=== PATIENT | male | born 1940 | race Caucasian/White ===

== ENCOUNTER → 2017-10-25 | Outpatient (CLI) | payer MEDICARE ==
--- NOTE | 2017-10-25 15:08 | NM ---
EXAMINATION TYPE: NM bone scan whole body DATE OF EXAM: 10/25/2017 COMPARISON: Plain film right knee 10/01/2017 HISTORY: Osteoarthritis, pain in right knee and lower leg Delayed whole-body scanning was performed following the injection of 25.4 mCi Tc 99m MDP. Images acq uired 3.5 hours post injection. FINDINGS: abnormal increased radio pharmaceutical uptake present in the right greater than left knee especially along the tibial plateau, also within the feet greater on the left than on the right. Abnormal uptak e present within the lumbar spine, there is associated spinal curvature, findings likely degenerative . Uptake also noted at the eighth costovertebral angle on the left likely degenerative. Abnormal upta ke in the shoulders is also noted. IMPRESSION: There is likely degenerative disc disease involving the lumbar spine with associated spinal curvature . Plain film findings within the right knee with some discordance, findings may represent posttraumat ic microtrabecular fractures, bone scan or follow-up x-ray or CT could be performed for better evalua tion. Degenerative changes may be present in the feet greater on the left than on the right as well a s in the costovertebral angle on the left at the eighth level. Difficult to exclude fracture.
== END | disposition home or self-care (01) ==
LOC: RADNMMAIN 10:53
PROVIDERS: ATTEND Family Medicine
DX: R93.7 Abnormal findings on diagnostic imaging of other parts of musculoskeletal system (principal); M19.90 Unspecified osteoarthritis, unspecified site
CPT/HCPCS: 78306; A9503

== ENCOUNTER → 2019-02-23 | Outpatient (CLI) | payer MEDICARE ==
[2019-02-23 11:02] LABS: African American GFR (CKD) >90 (>60 ml/min/1.73 sqM); Blood Urea Nitrogen 21 mg/dL (9-20)
--- NOTE | 2019-02-23 13:40 | CT ---
EXAMINATION TYPE: CT ChestAbdPelvis w con DATE OF EXAM: 02/23/2019 COMPARISON: None HISTORY: Eievated PSA CT DLP: 628.7 mGycm CONTRAST: CT scan of the chest, abdomen and pelvis is performed with Oral Contrast and with IV Contrast, patien t injected with 100 ml mL of Isovue 300. CT Chest: LUNGS: Nodular density left lower lobe with mild associated pleural thickening measuring 1.1 cm. Janes tional nodule right lower lobe measuring 1 cm. Small subpleural 3 mm nodule lateral right lower lobe image 35. Posterior right upper lobe pleural-based density measuring 1.3 x 0.9 cm. Focal atelectasis or infiltrate like area small in size left upper lobe medially measuring 1.7 x 0.8 cm. Mild scattered subpleural fibrotic change. No evidence of pleural effusion. Emphysematous changes noted in the uppe r lobes. MEDIASTINUM: Thoracic aorta is of normal caliber. The heart is not enlarged. No evidence for medi astinal mass or adenopathy. HILAR STRUCTURES: No evidence for mass. No hilar adenopathy is appreciated. OTHER: No significant abnormality. CONTRAST CT ABDOMEN AND PELVIS FINDINGS: LIVER/GB: Hepatomegaly with underlying fatty hepatic infiltration. No calcified gallstones. No spa ce occupying hepatic lesion. Biliary tree is of normal caliber. PANCREAS: No inflammation. No distinct mass. SPLEEN: The spleen is enlarged with craniocaudal measurement of 17.2 cm. No lesion seen. ADRENALS: No nodule. No thickening. KIDNEYS/BLADDER: No hydronephrosis. No nephrolithiasis. No disctinct renal mass. BOWEL: Normal appendix. Normal bowel caliber. No inflammation. GENITAL ORGANS: No gross abnormality. LYMPH NODES: No greater than 1cm abdominal or pelvic lymph nodes are appreciated. AORTA: Mild aneurysmal prominence of the infrarenal abdominal aorta measuring 3.1 cm with mural throm bus seen. OSSEOUS STRUCTURES: Degenerative changes lumbar spine without definite blastic lesion identified. OTHER: No significant additional abnormality is seen. IMPRESSION: 1. Nonspecific pulmonary nodularity. Consider PET/CT. 2. Hepatosplenomegaly. 3. Mild abdominal aortic aneurysm. 4. Degenerative changes lumbar spine.
--- NOTE | 2019-02-23 14:59 | NM ---
EXAMINATION TYPE: NM bone scan whole body DATE OF EXAM: 02/23/2019 COMPARISON: Same day CT. Prior bone scan October 25, 2017 HISTORY: Elevated PSA Delayed whole-body scanning was performed following the injection of 23.8 mCi Tc 99m MDP. Images acq uired 3 hours post injection. Images of the body and anterior and posterior projection along with the thorax abdomen and pelvis in several oblique projections in the skull in several projections. FINDINGS: There is no suspicious increased radiotracer uptake to suggest osseous metastatic disease or other si gnificant abnormality. IMPRESSION: As above.
== END | disposition home or self-care (01) ==
LOC: RADNMMAIN 09:51
PROVIDERS: ATTEND Internal Medicine Hematology & Oncology
DX: Z03.89 Encounter for observation for other suspected diseases and conditions ruled out (principal); R97.20 Elevated prostate specific antigen [PSA]; R91.8 Other nonspecific abnormal finding of lung field; R16.2 Hepatomegaly with splenomegaly, not elsewhere classified
CPT/HCPCS: 82565; 84520; 71260; 74177; 36415; 78306; A9503; Q9967

== ENCOUNTER → 2019-03-03 | Outpatient (CLI) | payer MEDICARE ==
--- NOTE | 2019-03-03 13:32 | XR ---
EXAMINATION TYPE: XR ankle complete LT DATE OF EXAM: 03/03/2019 COMPARISON: None HISTORY: Ankle pain TECHNIQUE: Three-view left ankle FINDINGS: There is prominent diffuse soft tissue swelling over the ankle. The ankle mortise appears i ntact. No displaced fractures are evident. IMPRESSION: 1. Diffuse soft tissue swelling over the ankle. 2. No acute osseous abnormality. Follow-up exams can be 7-10 days from acute trauma for continued reg n.
== END | disposition home or self-care (01) ==
LOC: RADXRMAIN 12:58
PROVIDERS: ATTEND Family Medicine
DX: M25.472 Effusion, left ankle (principal)

== ENCOUNTER → 2019-03-25 | Outpatient (CLI) | payer MEDICARE ==
--- NOTE | 2019-03-28 08:04 | PE ---
Nuclear medicine PET/CT HISTORY: Malignant neoplasm lung, initial Patient received 10.9 mCi F-18 FDG intravenously in delayed scanning performed from skull base to the mid thighs. Localization and attenuation correction CT scan was performed. Correlation chest abdomen pelvis CT 02/23/2019 Neck and chest: Uptake along the musculature in the left neck skull likely to be physiologic. There i s no cervical, supraclavicular, or axillary adenopathy. Some areas of probable scarring are present a t the lung bases and subpleural locations. There is no associated hypermetabolic uptake. Additional s ubpleural nodularity right upper lobe shows no associated uptake. The previously identified area of s tellate underlying atelectasis. There is aorticopulmonary window node present with some mild uptake. The node is borderline enlarged. Some mild uptake present in the retrocaval pretracheal nodes. There is borderline enlargement of one of the nodes. There are dense coronary artery calcifications present. No pleural or pericardial effusion. ABDOMEN: There is no evident liver mass. Liver shows a nodular contour, correlate for possible underl cata cirrhosis. Spleen is enlarged. Abdominal aorta. Is aneurysmal measuring 3.4 cm. There is no adre nal mass. No suspicious hypermetabolic uptake present within the abdomen. Stomach shows thickened wal l which is indeterminate. Extensive uptake noted along the colon may be physiologic, there is extensi ve diverticular change of the sigmoid colon, difficult to exclude a mucosal lesion. Prostate is enlar ged. Injection granuloma present in the gluteal regions. Osseous structures are within normal limits. IMPRESSION: Improvement in the basilar density described in the left lower lobe, there is no suspicio us hypermetabolic uptake within the lungs. Mild uptake noted within the mildly enlarged nodes within the aorticopulmonary window and retrocaval pretracheal node. Coronary artery disease. Correlate for c irrhosis. Splenomegaly. Prostatic enlargement.
== END | disposition home or self-care (01) ==
LOC: RADPETMAIN 12:48
PROVIDERS: ATTEND Radiology Radiation Oncology
DX: I25.10 Atherosclerotic heart disease of native coronary artery without angina pectoris (principal); R16.1 Splenomegaly, not elsewhere classified; N40.0 Benign prostatic hyperplasia without lower urinary tract symptoms; C34.90 Malignant neoplasm of unspecified part of unspecified bronchus or lung
CPT/HCPCS: 78815; A9552

== ENCOUNTER 2019-04-20 07:44 | Day surgery (SDC) | payer MEDICARE ==
[~2019-04-20 07:44] MED LIST: HYDROmorphone 0.5 MG/0.5 ML SYRINGE IVP PRN; LACTATED RINGERS 1,000 ML IV SCH; ONDANSETRON 4 MG/2 ML VIAL IVP PRN
[2019-04-20 08:03] VITALS: TEMP 97.8
[2019-04-20] MEDS ORDERED: LIDOCAINE 1% 20 ML VIAL (10MG/ML) FOR IV START INTRADERMA ONE (08:03)
[2019-04-20] MEDS ORDERED: LACTATED RINGERS 1,000 ML IV ONE (08:03)
[2019-04-20 08:12] LABS: Glucose,Whole Blood 132 mg/dL (75-99)
[2019-04-20] MEDS ORDERED: LIDOCAINE 1% INJ 10MG/ML (20 ML MDV) ONE (08:16)
[2019-04-20] MEDS ORDERED: PROPOFOL 10 MG/ML 20 ML VIAL IV ONE (08:16)
--- NOTE | 2019-04-20 09:21 | P.PCN ---
Date of Procedure: 04/20/19 Description of Procedure: Brief history: Patient is a pleasant scheduled for an elective upper endoscopy as well as colonoscopy as a part of evaluation of iron deficiency anemia. Patient denies any signs or symptoms of GI bleeding. He denies any abdominal pain, change in bowel habits or blood per rectum. No family history of colon cancer. No prior endoscopies reported. Procedure performed: Esophagogastroduodenoscopy with biopsy and banding of esophageal varices Colonoscopy Estimated blood loss: Minimal. Preoperative diagnosis: Iron deficiency anemia, no prior endoscopic evaluations reported Anesthesia: MAC Procedure: After informed consent was obtained from the patient was brought into the endoscopy unit and IV sedation was administered by anesthesia under continuous monitoring. Initially upper endoscopy was done. The Olympus GF 190 video endoscope was inserted into the mouth and esophagus intubated without any difficulty and was gradually advanced into the stomach and duodenum and carefully examined. The bulb and second part of the duodenum appeared normal, with biopsies taken. The scope was then withdrawn into the stomach adequately insufflated with air and upon careful examination the antrum and body, cardia and fundus appeared normal, except for some mild scattered erythema in the antrum and body suggestive of mild gastritis with biopsies taken. The scope was then withdrawn into the esophagus. The GE junction was located at 40 cm to the incisors. 3 columns of large varices noted in the mid and distal esophagus with variceal band ligation performed in a circumferential manner starting in the distal esophagus and moving proximally with 7 bands successfully placed. The patient tolerated the procedure well At this time the patient continued to remain sedation. Initial digital rectal examination was normal. Olympus CF 190 video colonoscope was then inserted into the rectum and gradually advanced to the cecum without any difficulty. Careful examination was performed as the scope was gradually being withdrawn. The prep was excellent. The cecum, ascending colon, transverse colon, descending colon, sigmoid colon and rectum appeared normal. 5 polyps measuring from 4 mm in size to 8 mm in size removed from the transverse colon with hot snare polypectomy. 4 polyps measuring from 3 mm in size to 8 mm in size removed from the descending colon with hot snare polypectomy. 3 polyps removed from the rectum measuring from 2 mm in size to 11 mm in size with hot snare polypectomy. Retroflexion was performed in the rectum and no lesions were noted, internal hemorrhoids noted as well as rectal varices. Patient tolerated the procedure well. Impression: 1. Banding of esophageal varices. Mild gastritis antrum and body biopsied. Duodenal biopsies. 2. Colonic polyps removed with hot snare polypectomy (please see body of report for location and size). Rectal varices. Moderate internal hemorrhoids. Recommendations: Findings of this examination were discussed with the patient as well as his . Okay for liquid diet today, can advance tomorrow as tolerated. Okay to resume medications. Patient will need repeat upper endoscopy in 2 weeks for esophageal variceal band ligation. Avoid pathology from polypectomies. Would recommend repeat colonoscopy in one year.
[2019-04-20 10:01] VITALS: RESP 16
[2019-04-20 10:02] LABS: Glucose,Whole Blood 150 mg/dL (75-99)
[2019-04-20 10:06] VITALS: BP 157/76; PULSE 98
== END 2019-04-20 10:42 | disposition home or self-care (01) ==
LOC: ORWHC2ENDO 07:44
PROVIDERS: ATTEND Internal Medicine
DX: I85.01 Esophageal varices with bleeding (principal); K29.50 Unspecified chronic gastritis without bleeding; D12.3 Benign neoplasm of transverse colon; D12.4 Benign neoplasm of descending colon; D50.9 Iron deficiency anemia, unspecified; K62.1 Rectal polyp; K64.8 Other hemorrhoids; Z88.0 Allergy status to penicillin; J44.9 Chronic obstructive pulmonary disease, unspecified; F17.200 Nicotine dependence, unspecified, uncomplicated; Z99.81 Dependence on supplemental oxygen; Z79.82 Long term (current) use of aspirin; Z79.891 Long term (current) use of opiate analgesic; Z79.899 Other long term (current) drug therapy; Z86.010 Personal history of colon polyps; E11.9 Type 2 diabetes mellitus without complications; Z85.46 Personal history of malignant neoplasm of prostate
CPT/HCPCS: 88305; 45385; 43239; 43244; J2001; J2704

== ENCOUNTER → 2020-01-30 | Outpatient (CLI) | payer MEDICARE ==
--- NOTE | 2020-01-30 14:28 | NM ---
EXAMINATION TYPE: NM bone scan whole body DATE OF EXAM: 01/30/2020 COMPARISON: Whole body bone scan February 23, 2019. PET CT March 25, 2019. Same day whole body CT. HISTORY: Prostate cancer. Delayed whole-body scanning was performed following the injection of 23.5 mCi Tc 99m MDP. Images acq uired 3 hours post injection. FINDINGS: There is no increased radiotracer uptake at roughly T5 vertebra corresponding to the diffus e sclerotic vertebra on same day CT with moderate height loss and similar increased radiotracer uptak e involving the adjacent T8 and T9 vertebra corresponding to the sclerotic vertebra with mild to mode rate height loss on same-day CT. Additional areas of radiotracer uptake corresponding to the anterolateral lower ribs bilaterally at s ite of healing subacute fractures on same-day CT. All findings new from prior bone scan and PET/CT. IMPRESSION: Subacute or healing fractures anterolateral bilateral lower ribs and thoracic spine compr ession fractures at 3 levels. Findings could be related to subacute trauma, correlate clinically, und erlying new metastatic disease is not excluded and should be correlated clinically and with PSA value s.
--- NOTE | 2020-02-01 23:06 | CT ---
EXAMINATION TYPE: CT ChestAbdPelvis wo con DATE OF EXAM: 01/30/2020 COMPARISON: PET/CT 03/25/2019 HISTORY: Prostate CA CT DLP: 376.6 mGycm. Automated Exposure Control for Dose Reduction was Utilized. TECHNIQUE: CT scan of the thorax, abdomen and pelvis is performed without IV contrast. FINDINGS: LUNGS: Centrilobular and paraseptal emphysema. Right upper lobe apical scarring and interstitial coar sening redemonstrated. Bibasilar atelectasis. Redemonstrated 3 mm nodule of the right lower lobe (4:3 6). There is no pleural effusion or pneumothorax seen. The tracheobronchial tree is patent. MEDIASTINUM/SOFT TISSUES: No axillary, hilar, or mediastinal lymphadenopathy greater than 1 cm. Cardi ac size is normal. Calcified coronary artery disease. No pericardial effusion. No thoracic aortic ane urysm. LIVER: Cirrhotic liver. BILIARY SYSTEM: No intrahepatic or extrahepatic biliary ductal dilatation. PANCREAS: Atrophic. No peripancreatic inflammation. SPLEEN: Enlarged measuring up to 15.7 cm in craniocaudal dimension. ADRENALS: No nodules. KIDNEYS: No hydronephrosis or urolithiasis. BOWEL: There is gastric fold hypertrophy of the stomach fundus and body. No evidence of bowel obstru ction. Colonic diverticulosis. PERITONEUM: No pneumoperitoneum. There is small volume ascites and mesenteric haziness. LYMPH NODES: No lymphadenopathy. PELVIS: Unremarkable urinary bladder and prostate on noncontrast examination. VASCULATURE: 3.2 cm infrarenal abdominal aortic aneurysm. Marked calcified atherosclerotic disease. Gastric varices are seen. Portal vein measures up to 2.0 cm. MUSCULOSKELETAL: Osteoporosis. Mild T9 compression deformity. Moderate T8 compression deformity with mild retropulsion. There is severe compression deformity of T4 with mild retropulsion. IMPRESSION: 1. Severe T4 compression deformity, moderate T8 compression deformity, and mild T9 compression deform ities appear new since 03/25/2019 and 02/23/2019 comparisons. These compression deformities correspond to increased uptake on same day nuclear medicine bone scan, likely subacute. Etiology may be related to diffuse osteoporosis. Pathological fracture is considered less likely. 2. No intra-abdominal or intrathoracic evidence of metastatic prostate cancer. 3. Cirrhotic liver and sequela of portal hypertension including ascites and gastric varices. 4. Thickening of the gastric folds may be due to portal hypertensive gastropathy. 5. 3.2 cm infrarenal abdominal aortic aneurysm. 6. Emphysema.
== END | disposition home or self-care (01) ==
LOC: RADNMMAIN 09:42
PROVIDERS: ATTEND Internal Medicine Hematology & Oncology
DX: Z03.89 Encounter for observation for other suspected diseases and conditions ruled out (principal); C61 Malignant neoplasm of prostate; I71.4 Abdominal aortic aneurysm, without rupture; J43.9 Emphysema, unspecified; K74.60 Unspecified cirrhosis of liver; K76.6 Portal hypertension; I86.4 Gastric varices; R18.8 Other ascites; Z88.0 Allergy status to penicillin
CPT/HCPCS: 71250; 74176; 78306; A9503

== ENCOUNTER → 2020-03-01 | Outpatient (CLI) | payer MEDICARE ==
--- NOTE | 2020-03-01 15:19 | XR ---
EXAMINATION TYPE: XR thoracic spine complete DATE OF EXAM: 03/01/2020 COMPARISON: None HISTORY: Pain, recent fall TECHNIQUE: Three-view thoracic spine FINDINGS: There are 12 thoracic type vertebral bodies. Pedicles are intact. There is compression defo rmity of T4. Some deformity of T6 and T8 are evident. Inferior endplate of T9 has some height loss. There is exaggeration of thoracic kyphosis. Disc heights appear preserved. IMPRESSION: 1. Compression deformities of T4, T6 and T8 with some inferior. This appears to been interval findin g from 03/25/2019 but present from 01/30/2020 endplate change at T9
== END | disposition home or self-care (01) ==
LOC: RADXRMAIN 14:04
PROVIDERS: ATTEND Family Medicine
DX: S22.009A Unspecified fracture of unspecified thoracic vertebra, initial encounter for closed fracture (principal)
CPT/HCPCS: 72072

== ENCOUNTER 2020-04-12 15:45 | Inpatient (IN) | payer MEDICARE ==
[2020-04-12] MEDS ORDERED: methylPREDNISolone SOD SUCCI 125 MG/2 ML VIAL IV STA (15:58)
[2020-04-12] MEDS ORDERED: IPRATROPIUM 0.5 MG/2.5 ML NEBU INHALATION STA (15:58)
[2020-04-12] MEDS ORDERED: ALBUTEROL NEBULIZED 2.5 MG/3 ML INHALATION STA (15:58)
--- NOTE | 2020-04-12 16:27 | ED ---
General Adult HPI - General Chief complaint: Shortness of Breath Stated complaint: leg swelling Time Seen by Provider: 04/12/20 15:51 Source: patient, RN notes reviewed, old records reviewed Mode of arrival: ambulatory Limitations: no limitations - History of Present Illness Initial comments: 80-year-old male history of COPD and emphysema on 2 L of home O2 presenting with worsening dyspnea. Patient states this has happened over the course of several days, his who is at bedside states that this began at on Wednesday of this week which was 3 days prior to arrival. No reported fever. He does report cough which has worsened as well. He's had increased lower extremity edema and increased abdominal distention. - Related Data Home Medications Medication Instructions Recorded Confirmed Aspirin EC [Ecotrin Low Dose] 81 mg PO DAILY 10/01/17 04/12/20 Esomeprazole Magnesium [NexIUM] 40 mg PO QAM 10/01/17 04/12/20 Mometasone/Formoterol [Dulera 200 2 puff INHALATION RT-BID 10/01/17 04/12/20 Mcg/5 Mcg Inhaler] glipiZIDE [Glucotrol] 10 mg PO BID 10/01/17 04/12/20 metFORMIN HCL [Glucophage] 500 mg PO BID 10/01/17 04/12/20 Vit C/E/Zn/Coppr/Lutein/Zeaxan 1 cap PO DAILY 04/18/19 04/12/20 [Preservision Areds 2 Softgel] oxyCODONE-APAP 10-325MG [Percocet 1 tab PO TID 04/18/19 04/12/20 10-325 mg] Albuterol Nebulized [Ventolin 2.5 mg INHALATION RT-QID PRN 04/12/20 04/12/20 Nebulized] Apalutamide [Erleada] 240 mg PO DAILY 04/12/20 04/12/20 Calcium 1200mg + Vit D3 5000u 1 tab PO DAILY 04/12/20 04/12/20 Cholecalciferol [Vitamin D3 (25 5,000 unit PO DAILY 04/12/20 04/12/20 Mcg = 1000 Iu)] Furosemide [Lasix] 40 mg PO DAILY 04/12/20 04/12/20 Potassium Chloride ER [K-Dur 20] 20 meq PO DAILY 10/30/20 10/30/20 Tiotropium [place] [Spiriva 1 spray INHALATION RT-DAILY@1800 04/12/20 04/12/20 Respimat] predniSONE 10 mg PO DIRECTED 04/12/20 04/12/20 traZODone HCL 100 mg PO HS 04/12/20 04/12/20 Allergies Allergy/AdvReac Type Severity Reaction Status Date / Time Penicillins Allergy Rash/Hives Verified 04/12/20 15:49 Review of Systems ROS Statement: Those systems with pertinent positive or pertinent negative responses have been documented in the HPI. ROS Other: All systems not noted in ROS Statement are negative. Past Medical History Past Medical History: Cancer, COPD, Diabetes Mellitus, GERD/Reflux, Osteoarth ritis (OA) Additional Past Medical History / Comment(s): CHRONIC PAIN. IRON LOW, GETTING INFUSION THERAPY FOR 3 TIMES. PROSTATE CANCER. History of Any Multi-Drug Resistant Organisms: None Reported Past Surgical History: Appendectomy, Hernia Repair Past Anesthesia/Blood Transfusion Reactions: No Reported Reaction Past Psychological History: No Psychological Hx Reported Smoking Status: Never smoker Past Alcohol Use History: Occasional Past Drug Use History: None Reported General Exam Limitations: no limitations General appearance: alert, in distress Head exam: Present: atraumatic, normocephalic Eye exam: Present: normal appearance. Absent: PERRL, EOMI ENT exam: Present: mucous membranes dry Neck exam: Present: normal inspection. Absent: tenderness, meningismus Respiratory exam: Present: respiratory distress, wheezes, accessory muscle use, decreased breath sounds Cardiovascular Exam: Present: regular rate, normal rhythm, systolic murmur GI/Abdominal exam: Present: soft, distended. Absent: tenderness, guarding Extremities exam: Present: pedal edema (3+) Neurological exam: Present: alert Psychiatric exam: Present: anxious Skin exam: Present: cyanosis, pallor Course Vital Signs 04/12/20 04/12/20 04/12/20 15:47 16:20 16:26 Temperature 99 F Pulse Rate 40 L 99 98 Respiratory 32 H Rate Blood Pressure 117/71 110/62 O2 Sat by Pulse 81 L 95 Oximetry 04/12/20 04/12/20 16:28 17:07 Temperature Pulse Rate 101 H 101 H Respiratory Rate Blood Pressure 122/69 O2 Sat by Pulse 98 Oximetry - Reevaluation(s) Reevaluation #1: 04/12/20 18:06 I did have a discussion with the patient's significant other who is bedside as well as his son who is traveling from out of town to be with his father. We discussed CODE STATUS and the patient's goals of care. All parties including the patient have agreed that he should not be resuscitated. He will receive medical management for his issues as well as comfort measures at this time. EKG Findings - EKG Comments: EKG Findings:: EKG: Normal sinus rhythm, low voltage no ST segment elevation, tremor artifactrate of 100 [place] interval 126, QRS duration 66, QTC 456 Medical Decision Making - Medical Decision Making 80-year-old male presenting in extremis, patient is cachectic with abdominal distention, he has respiratory distress with wheezing throughout. Patient patient has abdominal distention, lower extremity pitting edema. Given the acute nature of this I did order workup for dyspnea including echo. Echo is negative for large effusion or tamponade. There is some aortic stenosis. Patienthas a stable CBC. He has multiple tread abnormalities including hyponatremia, hypomagnesemia, hypocalcemia, hypoalbuminemiahe has an elevated INR and hyperbilirubinemia. I suspect this is new onset liver failure. I discussed the patient's presentation and goals of care with his significant other who is at bedside and his son who is on his way from out of town. All parties agree that the patient would not want resuscitation. His CODE STATUS is entered into the computer. All parties are agreeable with medical management. Patient has been admitted to Dr. Terrazas who is aware of the patient, GI, cardiology, and pulmonology placed on consult. - Lab Data Result diagrams: 04/12/20 16:14 04/12/20 16:14 Lab Results 04/12/20 04/12/20 04/12/20 Range/Units 16:14 16:14 16:14 WBC 8.2 (3.8-10.6) k/uL RBC 4.25 L (4.30-5.90) m/uL Hgb 13.4 (13.0-17.5) gm/dL Hct 43.3 (39.0-53.0) % MCV 101.9 H (80.0-100.0) fL MCH 31.5 (25.0-35.0) pg MCHC 31.0 (31.0-37.0) g/dL RDW 17.2 H (11.5-15.5) % Plt Count 147 L (150-450) k/uL Neutrophils % (Manual) 80 % Band Neuts % (Manual) 4 % Lymphocytes % (Manual) 8 % Monocytes % (Manual) 8 % Neutrophils # (Manual) 6.80 (1.3-7.7) k/uL Lymphocytes # (Manual) 0.66 L (1.0-4.8) k/uL Monocytes # (Manual) 0.66 (0-1.0) k/uL Nucleated RBCs 0 (0-0) /100 WBC Manual Slide Review Performed Poikilocytosis (manual Present Anisocytosis Slight Macrocytosis Moderate PT 12.1 H (9.0-12.0) sec INR 1.2 H (<1.2) APTT 28.4 (22.0-30.0) sec Sodium 127 L (137-145) mmol/L Potassium 4.2 (3.5-5.1) mmol/L Chloride 91 L (98-107) mmol/L Carbon Dioxide 26 (22-30) mmol/L Anion Gap 10 mmol/L BUN 53 H (9-20) mg/dL Creatinine 0.93 (0.66-1.25) mg/dL Est GFR (CKD-EPI)AfAm 89 (>60 ml/min/1.73 sqM) Est GFR (CKD-EPI)NonAf 77 (>60 ml/min/1.73 sqM) Glucose 186 H (74-99) mg/dL Plasma Lactic Acid Romulo (0.7-2.0) mmol/L Calcium 7.4 L (8.4-10.2) mg/dL Magnesium 1.1 L (1.6-2.3) mg/dL Total Bilirubin 2.8 H (0.2-1.3) mg/dL AST 42 (17-59) U/L ALT 20 (4-49) U/L Alkaline Phosphatase 310 H (38-126) U/L Troponin I (0.000-0.034) ng/mL Total Protein 6.0 L (6.3-8.2) g/dL Albumin 2.5 L (3.5-5.0) g/dL 04/12/2004/12/ Range/Units 16:14 16:14 WBC (3.8-10.6) k/uL RBC (4.30-5.90) m/uL Hgb (13.0-17.5) gm/dL Hct (39.0-53.0) % MCV (80.0-100.0) fL MCH (25.0-35.0) pg MCHC (31.0-37.0) g/dL RDW (11.5-15.5) % Plt Count (150-450) k/uL Neutrophils % (Manual) % Band Neuts % (Manual) % Lymphocytes % (Manual) % Monocytes % (Manual) % Neutrophils # (Manual) (1.3-7.7) k/uL Lymphocytes # (Manual) (1.0-4.8) k/uL Monocytes # (Manual) (0-1.0) k/uL Nucleated RBCs (0-0) /100 WBC Manual Slide Review Poikilocytosis (manual Anisocytosis Macrocytosis PT (9.0-12.0) sec INR (<1.2) APTT (22.0-30.0) sec Sodium (137-145) mmol/L Potassium (3.5-5.1) mmol/L Chloride (98-107) mmol/L Carbon Dioxide (22-30) mmol/L Anion Gap mmol/L BUN (9-20) mg/dL Creatinine (0.66-1.25) mg/dL Est GFR (CKD-EPI)AfAm (>60 ml/min/1.73 sqM) Est GFR (CKD-EPI)NonAf (>60 ml/min/1.73 sqM) Glucose (74-99) mg/dL Plasma Lactic Acid Romulo 2.7 H* (0.7-2.0) mmol/L Calcium (8.4-10.2) mg/dL Magnesium (1.6-2.3) mg/dL Total Bilirubin (0.2-1.3) mg/dL AST (17-59) U/L ALT (4-49) U/L Alkaline Phosphatase (38-126) U/L Troponin I <0.012 (0.000-0.034) ng/mL Total Protein (6.3-8.2) g/dL Albumin (3.5-5.0) g/dL Critical Care Time Critical Care Time: Yes Total Critical Care Time: 35 Disposition Clinical Impression: Acute exacerbation of chronic obstructive pulmonary disease, Liver failure, Abdominal ascites, Aortic stenosis Disposition: ADMITTED IP TO THIS HOSP Condition: Serious Is patient prescribed a controlled substance at d/c from ED?: No Referrals: Anselmo Tello DO [Primary Care Provider] - 1-2 days Decision to Admit Reason: Admit from EC Decision Date: 04/12/20 Decision Time: 18:10
[2020-04-12 16:32] LABS: INR 1.2 (<1.2); Partial Thromboplastin Time 28.4 sec (22.0-30.0); Prothrombin Time 12.1 sec (9.0-12.0)
[2020-04-12 16:34] LABS: Albumin 2.5 g/dL (3.5-5.0); Calcium 7.4 mg/dL (8.4-10.2); Magnesium 1.1 mg/dL (1.6-2.3); Potassium 4.2 mmol/L (3.5-5.1); Total Bilirubin 2.8 mg/dL (0.2-1.3)
[2020-04-12 16:40] LABS: Anisocytosis Slight; HCT 43.3 % (39.0-53.0); HGB 13.4 gm/dL (13.0-17.5); MCH 31.5 pg (25.0-35.0); MCV 101.9 fL (80.0-100.0); Macrocytosis Moderate; Mean Platelet Volume 9.4; Platelet Count 147 k/uL (150-450); RBC 4.25 m/uL (4.30-5.90); RDW 17.2 % (11.5-15.5); WBC 8.2 k/uL (3.8-10.6)
--- NOTE | 2020-04-12 16:54 | XR ---
EXAMINATION TYPE: XR chest 1V portable DATE OF EXAM: 04/12/2020 COMPARISON: 08/18/2016 HISTORY: Difficulty breathing TECHNIQUE: FINDINGS: There is mild blunting of the costophrenic angles. Heart size is normal. There is no heart failure. There are no hilar masses. There are chest leads. IMPRESSION: Small pleural effusions are new compared to old exam. Normal heart. No obvious heart fail ure.
[2020-04-12 17:04] LABS: Band Neutrophils % 4 %; Lymphocytes # (M) 0.66 k/uL (1.0-4.8); Monocytes # (M) 0.66 k/uL (0-1.0); Neutrophils % (M) 80 %
[2020-04-12 17:05] LABS: Nucleated Red Blood Cells 0 /100 WBC (0-0); Poikilocytosis (M) Present; Total Cells Counted 100
[2020-04-12] MEDS ORDERED: FUROSEMIDE 10 MG/ML 4 ML VIAL IV STA (17:39)
[2020-04-12] MEDS ORDERED: HYDROmorphone 0.5 MG/0.5 ML SYRINGE IVP STA (17:40)
[2020-04-12] MEDS ORDERED: IPRATROPIUM-ALBUTEROL 3 ML NEB INHALATION PRN (18:03)
[2020-04-12] MEDS: MAGNESIUM SULFATE-D5W PMX 1 GM in DEXTROSE/WATER 1 100ML.BAG IVPB SCH ×2 (18:30→19:42)
[2020-04-12] MEDS: IPRATROPIUM-ALBUTEROL 3 ML NEB INHALATION SCH (20:29)
[2020-04-12 20:33] LABS: Glucose,Whole Blood 193 mg/dL (75-99)
[2020-04-12] MEDS ORDERED: oxyCODONE-APAP 10-325MG 1 EACH TAB PO PRN (20:52)
[2020-04-12] MEDS ORDERED: ACETAMINOPHEN TAB 325 MG TAB PO PRN (20:55)
[2020-04-12] MEDS ORDERED: traZODone HCL 100 MG TAB PO SCH (21:00)
[2020-04-12] MEDS ORDERED: LORazepam 2 MG/ML INJ IV PRN ×2 (21:01)
[2020-04-12] MEDS: guaiFENesin 600 MG TABLET.ER PO SCH (21:34)
[2020-04-12] MEDS: INSULIN ASPART (NovoLOG) 100 UNIT/ML VIAL SQ SCH (21:34)
[2020-04-12] MEDS: methylPREDNISolone SOD SUCCI 125 MG/2 ML VIAL IV SCH (23:09)
[2020-04-13 02:58] LABS: Anisocytosis Slight; HGB 12.2 gm/dL (13.0-17.5); Hypochromasia Slight; MCH 31.4 pg (25.0-35.0); MCHC 30.5 g/dL (31.0-37.0); Macrocytosis Moderate; Mean Platelet Volume 9.1; Platelet Count 119 k/uL (150-450); RBC 3.89 m/uL (4.30-5.90); WBC 5.6 k/uL (3.8-10.6)
[2020-04-13 03:05] LABS: African American GFR (CKD) >90 (>60 ml/min/1.73 sqM); Anion Gap 15 mmol/L; Blood Urea Nitrogen 56 mg/dL (9-20); Calcium 7.1 mg/dL (8.4-10.2); Carbon Dioxide 27 mmol/L (22-30); Chloride 92 mmol/L (98-107); Glucose 108 mg/dL (74-99); Non-African American GFR(CKD) 80 (>60 ml/min/1.73 sqM); Potassium 4.3 mmol/L (3.5-5.1); Sodium 134 mmol/L (137-145)
[2020-04-13] MEDS: HYDROmorphone 0.5 MG/0.5 ML SYRINGE IVP PRN ×2 (03:50→12:11)
[2020-04-13 06:09] LABS: Glucose,Whole Blood 130 mg/dL (75-99)
[2020-04-13] MEDS: INSULIN ASPART (NovoLOG) 100 UNIT/ML VIAL SQ SCH ×2 (06:21→12:10)
[2020-04-13] MEDS: THIAMINE 100 MG TAB PO SCH ×2 (06:22→09:00)
[2020-04-13] MEDS: methylPREDNISolone SOD SUCCI 125 MG/2 ML VIAL IV SCH ×3 (06:27→16:41)
[2020-04-13] MEDS: IPRATROPIUM-ALBUTEROL 3 ML NEB INHALATION SCH ×4 (07:46→18:56)
[2020-04-13] MEDS ORDERED: POTASSIUM CHLORIDE ER 20 MEQ TAB.ER PO SCH (09:00)
[2020-04-13] MEDS ORDERED: glipiZIDE 10 MG TAB PO SCH (09:00)
[2020-04-13] MEDS ORDERED: metFORMIN 500 MG TAB PO SCH (09:00)
[2020-04-13] MEDS ORDERED: CHOLECALCIFEROL 1,000 UNIT TAB PO SCH (09:00)
[2020-04-13] MEDS ORDERED: ASPIRIN 81 MG PO SCH (09:00)
[2020-04-13] MEDS: guaiFENesin 600 MG TABLET.ER PO SCH ×2 (09:00→16:41)
[2020-04-13] MEDS ORDERED: PANTOPRAZOLE 40 MG TABLET PO SCH (09:00)
[2020-04-13 09:15] VITALS: RESP 25; TEMP 97.3
--- NOTE | 2020-04-13 09:36 | US ---
EXAMINATION TYPE: US abdomen limited DATE OF EXAM: 04/13/2020 COMPARISON: CT abdomen and pelvis January 30, 2020 CLINICAL HISTORY: abdominal distension r/o ascites. Cirrhosis. All four quadrants scanned, there is fluid in all four quadrants. The largest pocket is the right low er quadrant. Moderate ascites. Small to moderate amount of abdominal ascites greatest in the bilateral lower quadrants identified in images saved. IMPRESSION: As above.
--- NOTE | 2020-04-13 09:47 | ECHOF ---
Referral Reason:CHF/PIPPA MEASUREMENTS -------- HEIGHT: 167.6 cm WEIGHT: 55.3 kg BP: 109/70 IVSd: 1.0 cm (0.6 - 1.1) LVIDd: 2.9 cm (3.9 - 5.3) LVPWd: 1.1 cm (0.6 - 1.1) IVSs: 1.3 cm LVIDs: 2.0 cm LVPWs: 1.6 cm RVIDd: 4.8 cm (< 3.3) LAESV Index (A-L): 22.14 ml/m AV maxP.99 mmHg AV meanP.10 mmHg AR PHT: 418 ms RAP: 5.00 mmHg RVSP: 62.95 mmHg FINDINGS -------- Sinus rhythm. This was a technically adequate study. The left ventricular size is normal. There is borderline concentric left ventricular hypertrophy. Overall left ventricular systolic function is normal with, an EF between 55 - 60 %. The right ventricle is severely enlarged. Normal LA size by volume 22+/-6 ml/m2. The right atrium is moderately enlarged. Interatrial and interventricular septum intact. There is moderate aortic regurgitation. There is moderate aortic stenosis present. Peak/mean grad ient across the Aortic Valve is 35.99mmHg / 21.10mmHg. SUBOPTIMAL VISUALIZATION OF AORTIC VALVE Moderate mitral annular calcification present. Mild mitral regurgitation is present. Severe tricuspid regurgitation present. There is severe pulmonary hypertension. The right ventric ular systolic pressure, as measured by Doppler, is 62.95mmHg. There is no pulmonic regurgitation present. The aortic root size is normal. IVC Not well visulized. There is a trivial pericardial effusion present. CONCLUSIONS -------- 1. The left ventricular size is normal. 2. There is borderline concentric left ventricular hypertrophy. 3. Overall left ventricular systolic function is normal with, an EF between 55 - 60 %. 4. The right ventricle is severely enlarged. 5. The right atrium is moderately enlarged. 6. There is moderate aortic regurgitation. 7. There is moderate aortic stenosis present. 8. Peak/mean gradient across the Aortic Valve is 35.99mmHg / 21.10mmHg. 9. Moderate mitral annular calcification present. 10. Mild mitral regurgitation is present. 11. Severe tricuspid regurgitation present. 12. There is severe pulmonary hypertension. 13. The right ventricular systolic pressure, as measured by Doppler, is 62.95mmHg. 14. There is a trivial pericardial effusion present. [employer]: Joy Swanson RDCS
[2020-04-13] MEDS ORDERED: guaiFENesin-DM 600/30MG 1 EACH TAB.ER.12H PO SCH (10:15)
[2020-04-13] MEDS ORDERED: LEVOFLOXACIN 750 MG TAB PO SCH (10:15)
[2020-04-13] MEDS ORDERED: FUROSEMIDE 40 MG TAB PO SCH (10:30)
[2020-04-13 11:51] LABS: Glucose,Whole Blood 160 mg/dL (75-99)
--- NOTE | 2020-04-13 12:55 | CONS ---
CONSULTATION DATE OF SERVICE: 04/13/2020 REQUESTING PHYSICIAN: Dr. Anselmo Tello. REASON FOR CONSULTATION: Abdominal distention and history of liver cirrhosis. HISTORY OF PRESENT ILLNESS: The patient is an 80-year-old white male with history of COPD, admitted to the hospital because of shortness of breath and lower extremity swelling. The patient is an extremely poor historian. Most of the history was obtained from the patient's chart. Apparently, the patient was having worsening shortness of breath for the last 3 or 4 days duration. Came to the emergency room and subsequently admitted to the hospital for further evaluation. He was also complaining of abdominal distention, but patient is not able to clearly give me any details. However, denies any abdominal pain. He reports no nausea, no vomiting. On review of his records, he did have an EGD and colonoscopy by Dr. Mario in 2018 that showed evidence of large esophageal varices, for which he underwent esophageal variceal ligation and gastritis. This was done as a part of evaluation of iron deficiency anemia. The patient denies any prior history of jaundice or hepatitis. He does not recall having any chronic liver disease. MEDICATIONS: Medications at home include Lipitor, Nexium, Dulera, Glucotrol, Glucophage, Percocet, Ventolin, Erelada, vitamin D3, calcium, Lasix, K-Dur, , Prednisone and trazodone. ALLERGIES: PENICILLIN. PAST MEDICAL HISTORY: Diabetes mellitus, COPD, GERD, degenerative joint disease, iron deficiency anemia. PAST SURGICAL HISTORY: Appendectomy, hernia repair, EGD, colonoscopy in 2008. SOCIAL HISTORY: No smoking. No alcohol use. FAMILY HISTORY: Could not be obtained. PHYSICAL EXAMINATION: He appears very uncomfortable because of shortness of breath. Vital signs show a blood pressure of 117/71, pulse rate 114, temperature 98.1, respirations 20. HEENT examination unremarkable. Conjunctivae pink. Sclerae anicteric. Oral cavity no lesions. NECK: No JVD. CHEST: Decreased breath sounds bilaterally with expiratory wheezing. HEART: Regular rate and rhythm. ABDOMEN was distended. There was some free fluid noted in the abdomen. EXTREMITIES: Trace pedal edema, but there was redness of both lower extremities consistent with cellulitis. LABS: WBC 5.6, hemoglobin 12.2, platelets 119, T-bilirubin is 2.8. AST, ALT normal at 42 and 20 respectively. Alkaline phosphatase is 310. Lactic acid was 4.9. BUN 53, creatinine 0.98, sodium 127, potassium 4.2, chloride 91, CO2 26. IMPRESSION: 1. Exacerbation of chronic obstructive pulmonary disease. Presently on IV steroids. 2. Abdominal distention with possible ascites. 3. Chronic liver disease with possible cirrhosis of the liver. The patient had an EGD and colonoscopy by Dr. Mario a year ago that showed evidence of esophageal varices. The patient denies having any history of chronic liver disease in the past. No history of alcohol use. 4. Mild thrombocytopenia probably explained on the basis of chronic liver disease. RECOMMENDATIONS: 1. Ultrasound of the abdomen to evaluate for ascites and based on that we will decide on ultrasound-guided paracentesis for diagnostic and therapeutic purposes. 2. Initiate workup for chronic liver disease and we will obtain hepatitis serologies for b and C as well as alpha 1 antitrypsin level in view of underlying liver disease/COPD. 3. Continue with IV Solu-Medrol for COPD exacerbation. 4. Low-salt diet. 5. Monitor labs closely. 6. We will follow with you. Thank you for this consultation. MMODL / IJN: [id number] /
--- NOTE | 2020-04-13 13:36 | P.CNPUL ---
History of Present Illness Consult date: 04/13/20 Reason for consult: dyspnea, COPD History of present illness: 80-year-old male patient, quite debilitated, alcoholic with known history of chronic liver disease/cirrhosis with portal hypertension and a history of COPD whereas been followed up in our office regarding his COPD as the patient is a chronic smoker and he continues to smoke around half pack of cigarettes a day and the patient has chronic hypoxic respiratory failure maintained on oxygen at 2 L per minute nasal cannula. The patient came in to the hospital because of worsening shortness of breath, cough congestion and chest tightness and wheeze. At the same time he has developed increased abdominal distention and lower extremity edema. The abdomen distention is consistent with his liver disease at the patient has developed significant ascites. No fever. No chills. No e xposure to coronavirus covered 19 infection. No angina. No palpitations. He is quite debilitated and the patient's oral intake has progressively gone down and his performance and functional status is also done worse over the years. He is a DNR/DNI CODE STATUS. His current BMI is 20.3. His chest x-ray is consistent with COPD and the patient has small pleural effusion and blunting of the costophrenic angles. Heart sounds normal. There is no overt heart failure. Echo of the heart showed a preserved LV function with an ejection fraction of 55-60%. There is moderate aortic regurgitation, moderate aortic stenosis, gradient across the aortic valve is 35 mmHg, mild mitral regurgitation, severe tricuspid regurgitation with PA pressures of 62. Ultrasound of the abdomen shows a large ascites. The EKGs consistent with normal sinus rhythm, T-wave abnormalities considering inferior ischemia, low voltage QRS. The patient initially acquiesced level was 3.6 and currently is on 2.3. There is a 56 with a creatinine of 0.9. Troponin was negative. The pro calcitonin level is at 0.77. White cell count is at 5.6 with a hemoglobin of 12.2. Review of Systems Constitutional: Reports fatigue, Reports poor appetite, Reports weight loss Eyes: denies as per HPI, denies blurred vision, denies bulging eye, denies decreased vision, denies diplopia, denies discharge, denies dry eye, denies irritation, denies itching, denies pain, denies photophobia, denies loss of peripheral vision, denies loss of vision, denies tunnel vision/blind spots Ears: bilateral: decreased hearing, deny: ear discharge, earache, tinnitus Ears, nose, mouth and throat: Denies headache, Denies sore throat Breasts: absent: as per HPI, gynecomastia Cardiovascular: Reports dyspnea on exertion, Reports leg edema Respiratory: Reports cough, Reports wheezing Gastrointestinal: Reports as per HPI (ascites and abdominal distention) Genitourinary: Reports as per HPI Musculoskeletal: Reports as per HPI, Reports limitation of motion Musculoskeletal: bilateral: ankle swelling, absent: ankle pain, ankle stiffness Integumentary: Reports as per HPI Neurological: Reports as per HPI Psychiatric: Reports as per HPI Endocrine: Reports as per HPI Hematologic/Lymphatic: Reports as per HPI Allergic/Immunologic: Reports as per HPI Past Medical History Past Medical History: Cancer, COPD, Diabetes Mellitus, GERD/Reflux, Liver Disease, Osteoarthritis (OA) Additional Past Medical History / Comment(s): Liver cirrhosis, alcoholism, COPD, chronic pain, iron def anemia and prostate cancer, DM2, compression fx of the L3 spine , portal hypertension and esophageal varicees post banding History of Any Multi-Drug Resistant Organisms: None Reported Past Surgical History: Appendectomy, Hernia Repair Past Anesthesia/Blood Transfusion Reactions: No Reported Reaction Past Psychological History: No Psychological Hx Reported Smoking Status: Current every day smoker Past Alcohol Use History: Daily Additional Past Alcohol Use History / Comment(s): .5 PPD, SINCE WAS 13 YRS. Past Drug Use History: None Reported Medications and Allergies Home Medications Medication Instructions Recorded Confirmed Type Aspirin EC [Ecotrin Low Dose] 81 mg PO DAILY 10/01/17 04/12/20 History Esomeprazole Magnesium [NexIUM] 40 mg PO QAM 10/01/17 04/12/20 History Mometasone/Formoterol [Dulera 200 2 puff INHALATION RT-BID 10/01/17 04/12/20 History Mcg/5 Mcg Inhaler] glipiZIDE [Glucotrol] 10 mg PO BID 10/01/17 04/12/20 History metFORMIN HCL [Glucophage] 500 mg PO BID 10/01/17 04/12/20 History Vit C/E/Zn/Coppr/Lutein/Zeaxan 1 cap PO DAILY 04/18/19 04/12/20 History [Preservision Areds 2 Softgel] oxyCODONE-APAP 10-325MG [Percocet 1 tab PO TID 11/05/19 10/30/20 History 10-325 mg] Albuterol Nebulized [Ventolin 2.5 mg INHALATION RT-QID PRN 04/12/20 04/12/20 History Nebulized] Apalutamide [Erleada] 240 mg PO DAILY 04/12/20 04/12/20 History Calcium 1200mg + Vit D3 5000u 1 tab PO DAILY 04/12/20 04/12/20 History Cholecalciferol [Vitamin D3 (25 5,000 unit PO DAILY 04/12/20 04/12/20 History Mcg = 1000 Iu)] Furosemide [Lasix] 40 mg PO DAILY 04/12/20 04/12/20 History Potassium Chloride ER [K-Dur 20] 20 meq PO DAILY 04/12/20 04/12/20 History Tiotropium [place] [Spiriva 1 spray INHALATION RT-DAILY@1800 04/12/20 04/12/20 History Respimat] predniSONE 10 mg PO DIRECTED 04/12/20 04/12/20 History traZODone HCL 100 mg PO HS 04/12/20 04/12/20 History Allergies Allergy/AdvReac Type Severity Reaction Status Date / Time Penicillins Allergy Rash/Hives Verified 04/12/20 15:49 Physical Exam Vitals: Vital Signs Temp Pulse Pulse Resp BP BP Pulse Ox 04/13/20 09:14 97.3 F L 61 25 H 125/58 94 L 04/13/20 07:59 112 H 04/13/20 07:46 112 H 04/13/20 04:00 98.1 F 114 H 20 101/59 97 04/13/20 03:19 124 H 04/13/20 03:09 125 H 04/13/20 00:00 97.9 F 110 H 19 91/60 94 L 04/12/20 20:39 63 04/12/20 20:36 97.5 F L 109 H 19 96/57 98 04/12/20 20:32 92 L 04/12/20 20:31 61 04/12/20 20:10 97.8 F 04/12/20 19:42 107 H 22 126/73 97 04/12/20 18:20 92 17 100/53 98 04/12/20 17:07 101 H 122/69 98 04/12/20 16:28 101 H 04/12/20 16:26 98 110/62 95 04/12/20 16:20 99 04/12/20 15:47 99 F 40 L 32 H 117/71 81 L Intake and Output 04/12/20 04/13/20 04/13/20 22:59 06:59 14:59 Other: Voiding Method Urinal Urinal # Voids 1 # Bowel Movements 1 Weight 55.338 kg 57 kg Cachectic debilitated elderly male patient in mild degree of respiratory distress. He looks extremely emaciated. Abdomen is somewhat distended. He is able to sit up in bed to make himself more comfortable for breathing. Head exam was generally normal. There was no scleral icterus or corneal arcus. Mucous membranes were moist. Neck was supple and without jugular venous distension, thyromegaly, or carotid bruits. Carotids were easily palpable bilaterally. There was no adenopathy. Lungs sounds are diminished bilaterally and the patient has scattered expiratory wheezes throughout the lung mathew. Heart sounds are distant, regular, positive S1-S2 there is systolic ejection murmur over the apex consistent with aortic stenosis. The patient also has an accentuation of the second heart sound. Abdomen is distended and there is a fluid wave consistent with ascites. No direct tenderness. No rebound tenderness. No guarding. Extremities revealed +1 edema and there is no cyanosis or clubbing. Neurologically, he is heartily care with the patient. Times she is felt to be confused. He is moving all 4 extremities without any limitation. Examination of the skin revealed no evidence of significant rashes, suspicious appearing nevi or other concerning lesions. Results - Laboratory Findings CBC and BMP: 04/13/20 02:17 04/13/20 02:17 ABG WBC 5.6 k/uL (3.8-10.6) 04/13/20 02:17 RBC 3.89 m/uL (4.30-5.90) L 04/13/20 02:17 Hgb 12.2 gm/dL (13.0-17.5) L 04/13/20 02:17 Hct 40.0 % (39.0-53.0) 04/13/20 02:17 MCV 103.0 fL (80.0-100.0) H 04/13/20 02:17 MCH 31.4 pg (25.0-35.0) 04/13/20 02:17 MCHC 30.5 g/dL (31.0-37.0) L 04/13/20 02:17 RDW 17.0 % (11.5-15.5) H 04/13/20 02:17 Plt Count 119 k/uL (150-450) L 04/13/20 02:17 Neutrophils % (Manual) 80 % 04/12/20 16:14 Band Neuts % (Manual) 4 % 04/12/20 16:14 Lymphocytes % (Manual) 8 % 04/12/20 16:14 Monocytes % (Manual) 8 % 04/12/20 16:14 Neutrophils # (Manual) 6.80 k/uL (1.3-7.7) 04/12/20 16:14 Lymphocytes # (Manual) 0.66 k/uL (1.0-4.8) L 04/12/20 16:14 Monocytes # (Manual) 0.66 k/uL (0-1.0) 04/12/20 16:14 Nucleated RBCs 0 /100 WBC (0-0) 04/12/20 16:14 Manual Slide Review Performed 04/12/20 16:14 Hypochromasia Slight 04/13/20 02:17 Poikilocytosis (manual Present 04/12/20 16:14 Anisocytosis Slight 04/13/20 02:17 Macrocytosis Moderate 04/13/20 02:17 Sodium 134 mmol/L (137-145) L 04/13/20 02:17 Potassium 4.3 mmol/L (3.5-5.1) 04/13/20 02:17 Chloride 92 mmol/L (98-107) L 04/13/20 02:17 Carbon Dioxide 27 mmol/L (22-30) 04/13/20 02:17 Anion Gap 15 mmol/L 04/13/20 02:17 BUN 56 mg/dL (9-20) H 04/13/20 02:17 Creatinine 0.90 mg/dL (0.66-1.25) 04/13/20 02:17 Est GFR (CKD-EPI)AfAm >90 (>60 ml/min/1.73 sqM) 04/13/20 02:17 Est GFR (CKD-EPI)NonAf 80 (>60 ml/min/1.73 sqM) 04/13/20 02:17 Glucose 108 mg/dL (74-99) H 04/13/20 02:17 POC Glucose (mg/dL) 130 mg/dL (75-99) H 04/13/20 06:07 POC Glu [employer] Lien Mcnulty 04/13/20 06:07 Lactic Ac Sepsis Rflx Y 04/13/20 07:21 Plasma Lactic Acid Romulo 4.9 mmol/L (0.7-2.0) H* 04/13/20 05:50 Calcium 7.1 mg/dL (8.4-10.2) L 04/13/20 02:17 Magnesium 1.8 mg/dL (1.6-2.3) 04/13/20 05:50 Total Bilirubin 2.8 mg/dL (0.2-1.3) H 04/12/20 16:14 AST 42 U/L (17-59) 04/12/20 16:14 ALT 20 U/L (4-49) 04/12/20 16:14 Alkaline Phosphatase 310 U/L (38-126) H 04/12/20 16:14 Troponin I <0.012 ng/mL (0.000-0.034) 04/12/20 16:14 Total Protein 6.0 g/dL (6.3-8.2) L 04/12/20 16:14 Albumin 2.5 g/dL (3.5-5.0) L 04/12/20 16:14 Procalcitonin 0.77 ng/mL (0.02-0.09) H 04/13/20 02:17 PT/INR, D-dimer PT 12.1 sec (9.0-12.0) H 04/12/20 16:14 INR 1.2 (<1.2) H 04/12/20 16:14 Abnormal lab findings: Abnormal Labs 04/12/20 04/12/20 04/12/20 16:14 16:14 16:14 RBC 4.25 L Hgb MCV 101.9 H MCHC RDW 17.2 H Plt Count 147 L Lymphocytes # (Manual) 0.66 L PT 12.1 H INR 1.2 H Sodium 127 L Chloride 91 L BUN 53 H Glucose 186 H POC Glucose (mg/dL) Plasma Lactic Acid Romulo Calcium 7.4 L Magnesium 1.1 L Total Bilirubin 2.8 H Alkaline Phosphatase 310 H Total Protein 6.0 L Albumin 2.5 L Procalcitonin 04/12/20 04/12/20 04/12/20 16:14 19:00 20:29 RBC Hgb MCV MCHC RDW Plt Count Lymphocytes # (Manual) PT INR Sodium Chloride BUN Glucose POC Glucose (mg/dL) 193 H Plasma Lactic Acid Romulo 2.7 H* 2.5 H* Calcium Magnesium Total Bilirubin Alkaline Phosphatase Total Protein Albumin Procalcitonin 04/12/20 04/13/20 04/13/20 22:47 02:17 02:17 RBC 3.89 L Hgb 12.2 L MCV 103.0 H MCHC 30.5 L RDW 17.0 H Plt Count 119 L Lymphocytes # (Manual) PT INR Sodium Chloride BUN Glucose POC Glucose (mg/dL) Plasma Lactic Acid Romulo 3.6 H* Calcium Magnesium Total Bilirubin Alkaline Phosphatase Total Protein Albumin Procalcitonin 0.77 H 04/13/20 04/13/20 04/13/20 02:17 02:17 05:50 RBC Hgb MCV MCHC RDW Plt Count Lymphocytes # (Manual) PT INR Sodium 134 L Chloride 92 L BUN 56 H Glucose 108 H POC Glucose (mg/dL) Plasma Lactic Acid Romulo 2.7 H* 4.9 H* Calcium 7.1 L Magnesium Total Bilirubin Alkaline Phosphatase Total Protein Albumin Procalcitonin 04/13/20 06:07 RBC Hgb MCV MCHC RDW Plt Count Lymphocytes # (Manual) PT INR Sodium Chloride BUN Glucose POC Glucose (mg/dL) 130 H Plasma Lactic Acid Romulo Calcium Magnesium Total Bilirubin Alkaline Phosphatase Total Protein Albumin Procalcitonin - Diagnostic Findings Chest x-ray: image reviewed Assessment and Plan Plan: 1 acute COPD exacerbation, tracheobronchitis. Chest x-rays. Any acute pulmonary infiltrates. Coronavirus Covid 19 infections felt to be less likely, low suspicion and the screening test of the symptoms. 2 liver cirrhosis with secondary ascites. The patient is known to have portal hypertension esophageal varices with previous banding 3 large ascites 4 dyspnea secondary to above. 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 9 alcoholism 10 smoker 11 compression fracture of the T-spine 12 history of prostate cancer 13 diabetes mellitus 14 osteoarthritis 15 acid reflux Plan Initiated DuoNeb nebulized treatments around the clock IV Solu dose 60 mg every 6 hours Empiric antibiotic coverage with Levaquin 750 mg by mouth daily Monitor blood sugar was 4 steroid-induced hyperglycemia [employer] Agent interventional radiology for paracentesis to relieve this patient from ascites and this obviously would help with the shortness of breath Watch for any signs of delirium tremens Add Mucinex for cough and congestion Oral Lasix We will follow Prognosis poor and the patient is a DNR/DNI CODE STATUS
--- NOTE | 2020-04-13 13:38 | P.CRDCN ---
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 Past medical history of COPD, chronic hypoxic respiratory failure on home O2, diabetes mellitus, liver cirrhosis with portal hypertension and esophageal varices banded in the past, chronic alcohol abuse, active tobacco use and dependence. The patient came into the hospital due to increasing shortness of breath that started on Wednesday along with a cough and lower extremity edema. No fever. Complains of abdominal distention as well. He was afebrile, heart rate 99, blood pressure 117/71, pulse ox 81%. Hemoglobin 13.4, platelet count 147. Sodium 147, potassium 4.2, chloride 91, CO2 26, BUN 53, creatinine 0.93, blood sugar 186. INR 1.2. Alkaline phosphatase 310, total bilirubin 2.8. Lactic acid 2.7 EKG was a sinus rhythm with no ST elevation. Chest x-ray revealed small pleural effusion. Normal heart. No obvious heart failure. Echocardiogram reveals EF of 55-60%, moderate aortic regurgitation, moderate aortic stenosis, moderate mitral calcification, mild mitral regurgitation, severe tricuspid regurgitation, severe pulmonary hypertension. Trivial pericardial effusion. Abdominal ultrasound revealed small to moderate amount of abdominal ascites. Review Of Systems: Constitutional: No fever, no chills. No weakness, fatigue or lethargy. EENT: No headache. No dizziness. Lungs: No shortness of breath, cough, no sputum production. No wheezing. Cardiovascular: No chest pain, no lower extremity edema. No palpitations. No paroxysmal nocturnal dyspnea. No orthopnea. No lightheadedness or dizziness. No syncopal episodes. Abdominal: No abdominal pain. No nausea, vomiting. No diarrhea. No constipati on. No bloody or tarry stools.. No loss of appetite. Genitourinary: No dysuria.. No urinary retention. Musculoskeletal: No myalgias. No muscle weakness, no gait dysfunction, no frequent falls. No back pain. No neck pain. Integumentary: No wounds, no lesions. No rash or pruritus. No unusual b ruising. Neurologic: No aphasia. No facial droop. No change in mentation. No head injury. No headache. No paralysis. No paresthesia. Psychiatric: No depression. No anxiety. Endocrine: No abnormal blood sugars. Physical examination: Gen: This is a an 80-year-old male. He is resting in bed and appears to be in moderate respiratory distress. Not able to speak in full sentences. Difficult to obtain history from the patient. VS: Afebrile, heart rate 110, blood pressure 125/58, pulse ox 94% on 4 L nasal cannula. HEENT: Head is atraumatic, normocephalic. Pupils equal, round. Sclerae is anicteric. NECK: Supple. No JVD. No lymphadenopathy. No thyromegaly. LUNGS: Clear to auscultation. No wheezes or rhonchi. No intercostal retractions. HEART: Regular rate and rhythm. Systolic murmur. Mild tachycardia. ABDOMEN: Abdominal distended with ascites. No tenderness. EXTREMITIES: 2+ pedal edema with erythema bilaterally. No calf tenderness. NEUROLOGICAL: Patient is awake, alert and oriented x3. Cranial nerves 2 through 12 are grossly intact. Assessment: Acute on chronic hypoxic respiratory failure Worsening ascites secondary to liver cirrhosis Chronic liver disease Thrombocytopenia Valvular heart disease with moderate aortic stenosis, mild mitral regurgitation, severe tricuspid regurgitation Severe pulmonary hypertension Active tobacco use and dependence one pack per day for 65+ years Plan: Continue Lasix 40 mg daily Primary has added Aldactone 25 mg daily, propranolol 60 mg at bedtime Further recommendations to follow based upon clinical course Thank you kindly for this consultation. Nurse practitioner note has been reviewed, I agree with documented findings and plan of care. Patient was seen and examined. Past Medical History Past Medical History: Cancer, COPD, Diabetes Mellitus, GERD/Reflux, Liver Disease, Osteoarthritis (OA) Additional Past Medical History / Comment(s): Liver cirrhosis, alcoholism, COPD, chronic pain, iron def anemia and prostate cancer, DM2, compression fx of the L3 spine , portal hypertension and esophageal varicees post banding History of Any Multi-Drug Resistant Organisms: None Reported Past Surgical History: Appendectomy, Hernia Repair Past Anesthesia/Blood Transfusion Reactions: No Reported Reaction Past Psychological History: No Psychological Hx Reported Smoking Status: Current every day smoker Past Alcohol Use History: Daily Additional Past Alcohol Use History / Comment(s): .5 PPD, SINCE WAS 13 YRS. Past Drug Use History: None Reported Medications and Allergies Home Medications Medication Instructions Recorded Confirmed Type Aspirin EC [Ecotrin Low Dose] 81 mg PO DAILY 10/01/17 04/12/20 History Esomeprazole Magnesium [NexIUM] 40 mg PO QAM 10/01/17 04/12/20 History Mometasone/Formoterol [Dulera 200 2 puff INHALATION RT-BID 10/01/17 04/12/20 History Mcg/5 Mcg Inhaler] glipiZIDE [Glucotrol] 10 mg PO BID 10/01/17 04/12/20 History metFORMIN HCL [Glucophage] 500 mg PO BID 10/01/17 04/12/20 History Vit C/E/Zn/Coppr/Lutein/Zeaxan 1 cap PO DAILY 04/18/19 04/12/20 History [Preservision Areds 2 Softgel] oxyCODONE-APAP 10-325MG [Percocet 1 tab PO TID 04/18/19 04/12/20 History 10-325 mg] Albuterol Nebulized [Ventolin 2.5 mg INHALATION RT-QID PRN 04/12/20 04/12/20 His tory Nebulized] Apalutamide [Erleada] 240 mg PO DAILY 04/12/20 04/12/20 History Calcium 1200mg + Vit D3 5000u 1 tab PO DAILY 04/12/20 04/12/20 History Cholecalciferol [Vitamin D3 (25 5,000 unit PO DAILY 04/12/20 04/12/20 History Mcg = 1000 Iu)] Furosemide [Lasix] 40 mg PO DAILY 04/12/20 04/12/20 History Potassium Chloride ER [K-Dur 20] 20 meq PO DAILY 04/12/20 04/12/20 History Tiotropium [place] [Spiriva 1 spray INHALATION RT-DAILY@1800 04/12/20 04/12/20 History Respimat] predniSONE 10 mg PO DIRECTED 04/12/20 04/12/20 History traZODone HCL 100 mg PO HS 04/12/20 04/12/20 History Allergies Allergy/AdvReac Type Severity Reaction Status Date / Time Penicillins Allergy Rash/Hives Verified 04/12/20 15:49 Physical Exam Vitals: Vital Signs Temp Pulse Pulse Resp BP BP Pulse Ox 04/13/20 09:14 97.3 F L 61 25 H 125/58 94 L 04/13/20 07:59 112 H 04/13/20 07:46 112 H 04/13/20 04:00 98.1 F 114 H 20 101/59 97 04/13/20 03:19 124 H 04/13/20 03:09 125 H 04/13/20 00:00 97.9 F 110 H 19 91/60 94 L 04/12/20 20:39 63 04/12/20 20:36 97.5 F L 109 H 19 96/57 98 04/12/20 20:32 92 L 04/12/20 20:31 61 04/12/20 20:10 97.8 F 04/12/20 19:42 107 H 22 126/73 97 04/12/20 18:20 92 17 100/53 98 04/12/20 17:07 101 H 122/69 98 04/12/20 16:28 101 H 04/12/20 16:26 98 110/62 95 04/12/20 16:20 99 04/12/20 15:47 99 F 40 L 32 H 117/71 81 L Intake and Output 04/12/20 04/13/20 04/13/20 22:59 06:59 14:59 Other: Voiding Method Urinal Urinal # Voids 1 # Bowel Movements 1 Weight 55.338 kg 57 kg Results 04/13/20 02:17 04/13/20 02:17 Cardiac Enzymes 04/12/20 04/12/20 Range/Units 16:14 16:14 AST 42 (17-59) U/L Troponin I <0.012 (0.000-0.034) ng/mL Coagulation 04/12/20 Range/Units 16:14 PT 12.1 H (9.0-12.0) sec APTT 28.4 (22.0-30.0) sec CBC 04/12/20 04/13/20 Range/Units 16:14 02:17 WBC 8.2 5.6 (3.8-10.6) k/uL RBC 4.25 L 3.89 L (4.30-5.90) m/uL Hgb 13.4 12.2 L (13.0-17.5) gm/dL Hct 43.3 40.0 (39.0-53.0) % Plt Count 147 L 119 L (150-450) k/uL Comprehensive Metabolic Panel 04/12/20 04/13/20 Range/Units 16:14 02:17 Sodium 127 L 134 L (137-145) mmol/L Potassium 4.2 4.3 (3.5-5.1) mmol/L Chloride 91 L 92 L (98-107) mmol/L Carbon Dioxide 26 27 (22-30) mmol/L BUN 53 H 56 H (9-20) mg/dL Creatinine 0.93 0.90 (0.66-1.25) mg/dL Glucose 186 H 108 H (74-99) mg/dL Calcium 7.4 L 7.1 L (8.4-10.2) mg/dL AST 42 (17-59) U/L ALT 20 (4-49) U/L Alkaline Phosphatase 310 H (38-126) U/L Total Protein 6.0 L (6.3-8.2) g/dL Albumin 2.5 L (3.5-5.0) g/dL Current Medications Generic Name Dose Route Start Last Admin Trade Name Freq PRN Reason Stop Dose Admin Acetaminophen 650 mg 04/12/20 20:55 Acetaminophen Tab 325 Mg Tab PO Q6HR PRN Fever and/ or Pain Albuterol/Ipratropium 3 ml 04/12/20 18:03 04/13/20 03:09 Ipratropium-Albuterol 3 Ml Neb INHALATION 3 ml RT-Q4H PRN Administration Shortness Of Breath Or Wheezing Albuterol/Ipratropium 3 ml 04/12/20 20:00 04/13/20 07:46 Ipratropium-Albuterol 3 Ml Neb INHALATION 3 ml RT-QID KELVIN Administration Aspirin 81 mg 04/13/20 09:00 04/13/20 09:01 Aspirin 81 Mg PO 81 mg DAILY KELVIN Administration Cholecalciferol 5,000 unit 04/13/20 09:00 04/13/20 09:01 Cholecalciferol 1,000 Unit Tab PO Not Given DAILY KELVIN Glipizide 10 mg 04/13/20 09:00 04/13/20 09:00 Glipizide 10 Mg Tab PO 10 mg BID KELVIN Administration Guaifenesin 600 mg 04/12/20 22:00 04/13/20 09:00 Guaifenesin 600 Mg Tablet.Er PO 600 mg TID KELVIN Administration Guaifenesin/Dextromethorphan 2 each 04/13/20 10:15 Guaifenesin-Dm 600/30mg 1 Each Tab.Er.12h PO Q12HR KELVIN Hydromorphone HCl 0.5 mg 04/12/20 18:05 04/13/20 03:50 Hydromorphone 0.5 Mg/0.5 Ml Syringe IVP 0.5 mg Q3HR PRN Administration Pain Insulin Aspart 0 unit 04/12/20 21:00 04/13/20 06:21 Insulin Aspart (Novolog) 100 Unit/Ml Vial SQ Not Given ACHS KELVIN Protocol Levofloxacin 750 mg 04/13/20 10:15 Levofloxacin 750 Mg Tab PO DAILY KELVIN Lorazepam 1 mg 04/12/20 21:01 Lorazepam 2 Mg/Ml Inj IV Q2HR PRN CIWA 8 or 9 Lorazepam 1 mg 04/12/20 21:01 Lorazepam 2 Mg/Ml Inj IV Q1HR PRN CIWA 10 to 15 Lorazepam 2 mg 04/13/20 21:01 Lorazepam 2 Mg/Ml Inj IV 04/13/20 21:02 Q10M PRN CIWA 16 or higher Metformin HCl 500 mg 04/13/20 09:00 04/13/20 09:00 Metformin 500 Mg Tab PO 500 mg BID KELVIN Administration Methylprednisolone Sodium Succinate 60 mg 04/13/20 00:00 04/13/20 06:27 Methylprednisolone Sod Succi 125 Mg/2 Ml Vial IV 60 mg Q6HR KELVIN Administration Oxycodone/Acetaminophen 1 each 04/12/20 20:52 04/12/20 23:09 Oxycodone-Apap 10-325mg 1 Each Tab PO 1 each TID PRN Administration Pain Pantoprazole Sodium 40 mg 04/13/20 09:00 04/13/20 09:00 Pantoprazole 40 Mg Tablet PO 40 mg QAM KELVIN Administration Potassium Chloride 20 meq 04/13/20 09:00 04/13/20 09:00 Potassium Chloride Er 20 Meq Tab.Er PO 20 meq DAILY KELVIN Administration Thiamine HCl 100 mg 04/13/20 07:30 04/13/20 09:00 Thiamine 100 Mg Tab PO 100 mg BID-W/MEALS KELVIN Administration Trazodone HCl 100 mg 04/12/20 21:00 04/12/20 21:34 Trazodone Hcl 100 Mg Tab PO 100 mg HS KELVIN Administration Intake and Output 04/12/20 04/13/20 04/13/20 22:59 06:59 14:59 Other: Voiding Method Urinal Urinal # Voids 1 # Bowel Movements 1 Weight 55.338 kg 57 kg 04/13/20 02:17 04/13/20 02:17
[2020-04-13 14:20] VITALS: BP 93/54
--- NOTE | 2020-04-13 14:35 | P.HPIM ---
History of Present Illness H&P Date: 04/13/20 Chief Complaint: Weakness shortness of breath worsening edema This 89-year-old gentleman patient of Dr. Tello. He has underlying history of COPD, prostate cancer diabetes mellitus type 2, admitted through the emergency room secondary to increasing shortness of breath fatigue, increasing abdominal distention and worsening leg edema. Patient is an colic, and drinks 6-9 shots of whiskey [place] yellow every day, shots, now comes in with abdominal symptoms, per son, patient lives with a live-in partner, on O2 2-2 L nasal cannula at home, walks with a walker, and is fallen down 5 weeks ago with subsequent fractured left rib. Per son, patient had always an elevated PSA, however no treatment was offered including TURP or radiation or chemotherapy He follows with Dr. Mcclure/Vasu.. He now comes in with abnormal distention for which no previous paracentesis was performed, ultrasound of the abdomen shows moderate ascites, chest x-ray shows small pleural effusion, new compared to previous, no overt failure, no infiltrates, echocardiogram was performed borderline LVH with EF 55-60% right ventricular systolic pressure of 62, severe TR, severe pulmonary hypertension, moderate MR, moderate aortic stenosis. Right Ventricle severely enlarged, right atrium moderately enlarged, moderate AR. EKG shows normal sinus rhythm, with T- wave nonspecific abnormality, troponin less than 0.012, pro-calcitonin 0.77, albumin 2.5, sodium 127, creatinine 0.93, glucose 186, calcium 7.4, admission 1.1, total bili 2.8, ALT AST is normal, alkaline [place] elevated at 310 no lipase performed, hemoglobin 13.4, MCV 101 platelet count of 147 INF 1.2 Consults were made to cardiology, pulmonary Dr. Mcclure, and gastroenterology secondary to ascites with anasarca, alcoholic liver cirrhosis with alcohol dependency, alcohol related illnesses. Review of Systems ROS unobtainable: due to mental status Cardiovascular: Reports dyspnea on exertion, Reports leg edema, Reports orthopnea Gastrointestinal: Reports as per HPI, Reports bloating Genitourinary: Reports as per HPI Musculoskeletal: Reports as per HPI Integumentary: Reports as per HPI Neurological: Reports as per HPI Psychiatric: Reports as per HPI, Reports disorientation, Reports insomnia Endocrine: Reports as per HPI Hematologic/Lymphatic: Reports as per HPI, Reports easy bleeding Allergic/Immunologic: Reports as per HPI Past Medical History Past Medical History: Cancer, COPD, Diabetes Mellitus, GERD/Reflux, Liver Disease, Osteoarthritis (OA) Additional Past Medical History / Comment(s): Liver cirrhosis, alcoholism, COPD, chronic pain, iron def anemia and prostate cancer, DM2, compression fx of the L3 spine , portal hypertension and esophageal varicees post banding History of Any Multi-Drug Resistant Organisms: None Reported Past Surgical History: Appendectomy, Hernia Repair Past Anesthesia/Blood Transfusion Reactions: No Reported Reaction Past Psychological History: No Psychological Hx Reported Smoking Status: Current every day smoker Past Alcohol Use History: Daily Additional Past Alcohol Use History / Comment(s): .5 PPD, SINCE WAS 13 YRS. Past Drug Use History: None Reported Medications and Allergies Home Medications Medication Instructions Recorded Confirmed Type Aspirin EC [Ecotrin Low Dose] 81 mg PO DAILY 10/01/17 04/12/20 History Esomeprazole Magnesium [NexIUM] 40 mg PO QAM 10/01/17 04/12/20 History Mometasone/Formoterol [Dulera 200 2 puff INHALATION RT-BID 10/01/17 04/12/20 History Mcg/5 Mcg Inhaler] glipiZIDE [Glucotrol] 10 mg PO BID 10/01/17 04/12/20 History metFORMIN HCL [Glucophage] 500 mg PO BID 10/01/17 04/12/20 History Vit C/E/Zn/Coppr/Lutein/Zeaxan 1 cap PO DAILY 04/18/19 04/12/20 History [Preservision Areds 2 Softgel] oxyCODONE-APAP 10-325MG [Percocet 1 tab PO TID 04/18/19 04/12/20 History 10-325 mg] Albuterol Nebulized [Ventolin 2.5 mg INHALATION RT-QID PRN 04/12/20 04/12/20 History Nebulized] Apalutamide [Erleada] 240 mg PO DAILY 04/12/20 04/12/20 History Calcium 1200mg + Vit D3 5000u 1 tab PO DAILY 04/12/20 04/12/20 History Cholecalciferol [Vitamin D3 (25 5,000 unit PO DAILY 04/12/20 04/12/20 History Mcg = 1000 Iu)] Furosemide [Lasix] 40 mg PO DAILY 04/12/20 04/12/20 History Potassium Chloride ER [K-Dur 20] 20 meq PO DAILY 04/12/20 04/12/20 History Tiotropium [place] [Spiriva 1 spray INHALATION RT-DAILY@1800 04/12/20 04/12/20 History Respimat] predniSONE 10 mg PO DIRECTED 04/12/20 04/12/20 History traZODone HCL 100 mg PO HS 04/12/20 04/12/20 History Allergies Allergy/AdvReac Type Severity Reaction Status Date / Time Penicillins Allergy Rash/Hives Verified 04/12/20 15:49 Physical Exam Vitals: Vital Signs Temp Pulse Pulse Resp BP BP Pulse Ox 04/13/20 09:14 97.3 F L 61 25 H 125/58 94 L 04/13/20 07:59 112 H 04/13/20 07:46 112 H 04/13/20 04:00 98.1 F 114 H 20 101/59 97 04/13/20 03:19 124 H 04/13/20 03:09 125 H 04/13/20 00:00 97.9 F 110 H 19 91/60 94 L 04/12/20 20:39 63 04/12/20 20:36 97.5 F L 109 H 19 96/57 98 04/12/20 20:32 92 L 04/12/20 20:31 61 04/12/20 20:10 97.8 F 04/12/20 19:42 107 H 22 126/73 97 04/12/20 18:20 92 17 100/53 98 04/12/20 17:07 101 H 122/69 98 04/12/20 16:28 101 H 04/12/20 16:26 98 110/62 95 04/12/20 16:20 99 04/12/20 15:47 99 F 40 L 32 H 117/71 81 L Intake and Output 04/12/20 04/13/20 04/13/20 22:59 06:59 14:59 Other: Voiding Method Urinal Urinal # Voids 1 # Bowel Movements 1 Weight 55.338 kg 57 kg Patient was asleep during examination, patient has a very lengthy night last night, son does not want him to be disturbed - Constitutional General appearance: cooperative, no acute distress, thin - EENT Eyes: edentulous, PERRLA, poor dentition ENT: NA/AT - Neck Neck: normal ROM - Respiratory Respiratory: bilateral: CTA, negative: diminished, dullness - Cardiovascular Rhythm: regular Heart sounds: normal: S1, S2 Abnormal Heart Sounds: no systolic murmur, no diastolic murmur, no rub, no S3 Gallop, no S4 Gallop, no click, no other - Gastrointestinal General gastrointestinal: hepatomegaly, soft - Integumentary Integumentary: jaundiced, normal - Neurologic Neurologic: CNII-XII intact - Musculoskeletal Musculoskeletal: generalized weakness - Psychiatric Psychiatric: A&O x's 3 Results CBC & Chem 7: 04/13/20 02:17 04/13/20 02:17 Labs: Abnormal Lab Results - Last 24 Hours (Table) 04/12/20 04/12/20 04/12/20 Range/Units 16:14 16:14 16:14 RBC 4.25 L (4.30-5.90) m/uL Hgb (13.0-17.5) gm/dL MCV 101.9 H (80.0-100.0) fL MCHC (31.0-37.0) g/dL RDW 17.2 H (11.5-15.5) % Plt Count 147 L (150-450) k/uL Lymphocytes # (Manual) 0.66 L (1.0-4.8) k/uL PT 12.1 H (9.0-12.0) sec INR 1.2 H (<1.2) Sodium 127 L (137-145) mmol/L Chloride 91 L (98-107) mmol/L BUN 53 H (9-20) mg/dL Glucose 186 H (74-99) mg/dL POC Glucose (mg/dL) (75-99) mg/dL Plasma Lactic Acid Romuol (0.7-2.0) mmol/L Calcium 7.4 L (8.4-10.2) mg/dL Magnesium 1.1 L (1.6-2.3) mg/dL Total Bilirubin 2.8 H (0.2-1.3) mg/dL Alkaline Phosphatase 310 H (38-126) U/L Total Protein 6.0 L (6.3-8.2) g/dL Albumin 2.5 L (3.5-5.0) g/dL Procalcitonin (0.02-0.09) ng/mL 04/12/20 04/12/20 04/12/20 Range/Units 16:14 19:00 20:29 RBC (4.30-5.90) m/uL Hgb (13.0-17.5) gm/dL MCV (80.0-100.0) fL MCHC (31.0-37.0) g/dL RDW (11.5-15.5) % Plt Count (150-450) k/uL Lymphocytes # (Manual) (1.0-4.8) k/uL PT (9.0-12.0) sec INR (<1.2) Sodium (137-145) mmol/L Chloride (98-107) mmol/L BUN (9-20) mg/dL Glucose (74-99) mg/dL POC Glucose (mg/dL) 193 H (75-99) mg/dL Plasma Lactic Acid Romulo 2.7 H* 2.5 H* (0.7-2.0) mmol/L Calcium (8.4-10.2) mg/dL Magnesium (1.6-2.3) mg/dL Total Bilirubin (0.2-1.3) mg/dL Alkaline Phosphatase (38-126) U/L Total Protein (6.3-8.2) g/dL Albumin (3.5-5.0) g/dL Procalcitonin (0.02-0.09) ng/mL 04/12/20 04/13/20 04/13/20 Range/Units 22:47 02:17 02:17 RBC 3.89 L (4.30-5.90) m/uL Hgb 12.2 L (13.0-17.5) gm/dL MCV 103.0 H (80.0-100.0) fL MCHC 30.5 L (31.0-37.0) g/dL RDW 17.0 H (11.5-15.5) % Plt Count 119 L (150-450) k/uL Lymphocytes # (Manual) (1.0-4.8) k/uL PT (9.0-12.0) sec INR (<1.2) Sodium (137-145) mmol/L Chloride (98-107) mmol/L BUN (9-20) mg/dL Glucose (74-99) mg/dL POC Glucose (mg/dL) (75-99) mg/dL Plasma Lactic Acid Romulo 3.6 H* (0.7-2.0) mmol/L Calcium (8.4-10.2) mg/dL Magnesium (1.6-2.3) mg/dL Total Bilirubin (0.2-1.3) mg/dL Alkaline Phosphatase (38-126) U/L Total Protein (6.3-8.2) g/dL Albumin (3.5-5.0) g/dL Procalcitonin 0.77 H (0.02-0.09) ng/mL 04/13/20 04/13/20 04/13/20 Range/Units 02:17 02:17 05:50 RBC (4.30-5.90) m/uL Hgb (13.0-17.5) gm/dL MCV (80.0-100.0) fL MCHC (31.0-37.0) g/dL RDW (11.5-15.5) % Plt Count (150-450) k/uL Lymphocytes # (Manual) (1.0-4.8) k/uL PT (9.0-12.0) sec INR (<1.2) Sodium 134 L (137-145) mmol/L Chloride 92 L (98-107) mmol/L BUN 56 H (9-20) mg/dL Glucose 108 H (74-99) mg/dL POC Glucose (mg/dL) (75-99) mg/dL Plasma Lactic Acid Romulo 2.7 H* 4.9 H* (0.7-2.0) mmol/L Calcium 7.1 L (8.4-10.2) mg/dL Magnesium (1.6-2.3) mg/dL Total Bilirubin (0.2-1.3) mg/dL Alkaline Phosphatase (38-126) U/L Total Protein (6.3-8.2) g/dL Albumin (3.5-5.0) g/dL Procalcitonin (0.02-0.09) ng/mL 04/13/20 04/13/20 Range/Units 06:07 10:00 RBC (4.30-5.90) m/uL Hgb (13.0-17.5) gm/dL MCV (80.0-100.0) fL MCHC (31.0-37.0) g/dL RDW (11.5-15.5) % Plt Count (150-450) k/uL Lymphocytes # (Manual) (1.0-4.8) k/uL PT (9.0-12.0) sec INR (<1.2) Sodium (137-145) mmol/L Chloride (98-107) mmol/L BUN (9-20) mg/dL Glucose (74-99) mg/dL POC Glucose (mg/dL) 130 H (75-99) mg/dL Plasma Lactic Acid Romulo 2.3 H* (0.7-2.0) mmol/L Calcium (8.4-10.2) mg/dL Magnesium (1.6-2.3) mg/dL Total Bilirubin (0.2-1.3) mg/dL Alkaline Phosphatase (38-126) U/L Total Protein (6.3-8.2) g/dL Albumin (3.5-5.0) g/dL Procalcitonin (0.02-0.09) ng/mL Laboratory Results WBC 5.6 k/uL (3.8-10.6) 04/13/20 02:17 RBC 3.89 m/uL (4.30-5.90) L 04/13/20 02:17 Hgb 12.2 gm/dL (13.0-17.5) L 04/13/20 02:17 Hct 40.0 % (39.0-53.0) 04/13/20 02:17 MCV 103.0 fL (80.0-100.0) H 04/13/20 02:17 MCH 31.4 pg (25.0-35.0) 04/13/20 02:17 MCHC 30.5 g/dL (31.0-37.0) L 04/13/20 02:17 RDW 17.0 % (11.5-15.5) H 04/13/20 02:17 Plt Count 119 k/uL (150-450) L 04/13/20 02:17 Neutrophils % (Manual) 80 % 04/12/20 16:14 Band Neuts % (Manual) 4 % 04/12/20 16:14 Lymphocytes % (Manual) 8 % 04/12/20 16:14 Monocytes % (Manual) 8 % 04/12/20 16:14 Neutrophils # (Manual) 6.80 k/uL (1.3-7.7) 04/12/20 16:14 Lymphocytes # (Manual) 0.66 k/uL (1.0-4.8) L 04/12/20 16:14 Monocytes # (Manual) 0.66 k/uL (0-1.0) 04/12/20 16:14 Nucleated RBCs 0 /100 WBC (0-0) 04/12/20 16:14 Manual Slide Review Performed 04/12/20 16:14 Hypochromasia Slight 04/13/20 02:17 Poikilocytosis (manual Present 04/12/20 16:14 Anisocytosis Slight 04/13/20 02:17 Macrocytosis Moderate 04/13/20 02:17 PT 12.1 sec (9.0-12.0) H 04/12/20 16:14 INR 1.2 (<1.2) H 04/12/20 16:14 APTT 28.4 sec (22.0-30.0) 04/12/20 16:14 Sodium 134 mmol/L (137-145) L 04/13/20 02:17 Potassium 4.3 mmol/L (3.5-5.1) 04/13/20 02:17 Chloride 92 mmol/L (98-107) L 04/13/20 02:17 Carbon Dioxide 27 mmol/L (22-30) 04/13/20 02:17 Anion Gap 15 mmol/L 04/13/20 02:17 BUN 56 mg/dL (9-20) H 04/13/20 02:17 Creatinine 0.90 mg/dL (0.66-1.25) 04/13/20 02:17 Est GFR (CKD-EPI)AfAm >90 (>60 ml/min/1.73 sqM) 04/13/20 02:17 Est GFR (CKD-EPI)NonAf 80 (>60 ml/min/1.73 sqM) 04/13/20 02:17 Glucose 108 mg/dL (74-99) H 04/13/20 02:17 POC Glucose (mg/dL) 160 mg/dL (75-99) H 04/13/20 11:50 POC Glu Beef Killer ID Mariam Ennis 04/13/20 11:50 Lactic Ac Sepsis Rflx Y 04/13/20 10:35 Plasma Lactic Acid Romulo 3.4 mmol/L (0.7-2.0) H* 04/13/20 12:41 Calcium 7.1 mg/dL (8.4-10.2) L 04/13/20 02:17 Magnesium 1.8 mg/dL (1.6-2.3) 04/13/20 05:50 Total Bilirubin 2.8 mg/dL (0.2-1.3) H 04/12/20 16:14 AST 42 U/L (17-59) 04/12/20 16:14 ALT 20 U/L (4-49) 04/12/20 16:14 Alkaline Phosphatase 310 U/L (38-126) H 04/12/20 16:14 Troponin I <0.012 ng/mL (0.000-0.034) 04/12/20 16:14 Total Protein 6.0 g/dL (6.3-8.2) L 04/12/20 16:14 Albumin 2.5 g/dL (3.5-5.0) L 04/12/20 16:14 Procalcitonin 0.77 ng/mL (0.02-0.09) H 04/13/20 02:17 Thrombosis Risk Factor Assmnt - DVT/VTE Prophylaxis DVT/VTE Prophylaxis: Pharmacologic Prophylaxis ordered, Contraindicated - See note - Choose All That Apply Each Factor Represents 1 point: Abnormal pulmonary function (COPD), Swollen legs (current) Each Risk Factor Represents 3 Points: Age 75 years or older Thrombosis Risk Factor Assessment Total Risk Factor Score: 5 Thrombosis Risk Factor Assessment Level: High Risk Assessment and Plan Plan: 1. Anasarca with severe ascites, alcohol-related liver disease, severe protein calorie malnutrition, patient has moderate ascites based on imaging ultrasound, patient has agreed for abdominal paracentesis to be done later, consult with gastroenterology and interventional radiology. Monitor for coagulopathy with an INR and platelet count. Patient is on Lasix 40 mg daily, stat dose were given the ER, we started him on Inderal 60 mg as well as spironolactone 25 mg daily 2. Liver cirrhosis with slight bilirubinemia start Inderal, 60 mg daily a delay, and spironolactone 25 mg daily 3. Diabetes mellitus type 2, on glipizide 10 mg twice a day, A1c to be done, this would be on hold as the patient has been eating less, coverage with NovoLog scale, 4. Alcohol dependency DVT precautions with ciwa protocol, 5. Prostate cancer without any current regimen later for urinary retention PVR is ordered every shift daily 6 COPD exacerbation, pulmonary consult, methylprednisone 60 mg every 6 hours, nebulized DuoNeb, nebulized budesonide added 7. Moderate protein calorie malnutrition, protein supplementation once a week 8. Diabet 8. Sepsis, either aspiration pneumonia, on Levaquin 750 mg against gram- negative pneumonia. 9. Recent rib fracture left side secondary to fall 5 weeks ago 10. Severe pulmonary hypertension, Lasix 40 mg daily, needs to be titrated, IV steroids pulmonary consultation 11. Moderate aortic stenosis, cardiology is on consult, EF currently of 55-60% 12. Small pulmonary effusion, to be monitored, on diuretics 13. Cachexia, with low BMI, nutritional supplementation possibly related to prostate cancer, against concurrent infection and liver ascites with abdominal distention 14. Urinary retention, PVR 356, indwelling Klein catheter started while in the hospital. GI prophylaxis with Protonix DVT prophylaxis with heparin subcu 5000 every 12 monitor for platelets and INR CODE STATUS DO NOT RESUSCITATE no vent no CPR Debility, walker on community ambulation, comes from home, PT OT to be added
[2020-04-13] MEDS ORDERED: HEPARIN SODIUM,PORCINE 5,000 UNIT/ML 1 ML VIAL SQ SCH (15:00)
[2020-04-13 15:35] VITALS: PULSE 106
[2020-04-13 17:18] LABS: Appearance,Urine Clear (Clear); Bilirubin,Urine Negative (Negative); Blood,Urine Small (Negative); Color,Urine Yellow; Glucose,Urine (UA) 1+ (Negative); Hyaline Casts,Urine 13 /lpf (0-2); Ketones,Urine Negative (Negative); Leukocyte Esterase,Urine Negative (Negative); Mucus,Urine Rare /hpf; Nitrite,Urine Negative (Negative); Protein,Urine Negative (Negative); RBC,Urine 10 /hpf (0-5); Specific Gravity,Urine 1.016 (1.001-1.035); WBC,Urine 2 /hpf (0-5)
[2020-04-13 17:26] LABS: Alpha Fetoprotein, Tumor Mkr <2.5 ng/mL (0.0-7.9)
[2020-04-13 18:01] LABS: Hepatitis B Surface Antigen Non-Reactive (Non-Reactive); Hepatitis C IgG Antibody Non-Reactive (Non-Reactive)
[2020-04-13] MEDS ORDERED: PROPRANOLOL LA 60 MG CAP.SA.24H PO SCH (21:00)
[2020-04-13] MEDS ORDERED: LORazepam 2 MG/ML INJ IV PRN (21:01)
[2020-04-13 23:34] LABS: Hemoglobin A1C 7.1 % (4.0-6.0)
[2020-04-14] MEDS ORDERED: SPIRONOLACTONE 25 MG TAB PO SCH (09:00)
--- NOTE | 2020-04-18 12:23 | P.DS ---
Providers Date of admission: 04/12/20 18:05 Expected date of discharge: 04/18/20 Attending physician: Jasmine Stout Consults: 04/12/20 18:03 Consult Physician Routine Consulting Provider: Alida Guzman Consult Reason/Comments: aortic stenosis, dyspnea Do you want consulting provider notified?: Yes Consult Physician Routine Consulting Provider: Boone Leone Consult Reason/Comments: COPD Do you want consulting provider notified?: Yes Consult Physician Routine Consulting Provider: Yen Ramirez Consult Reason/Comments: ab distention, hyperbilirubinemia Do you want consulting provider notified?: Yes Primary care physician: [facility] Course: This 89-year-old gentleman patient of Dr. Tello. He has underlying history of COPD, prostate cancer diabetes mellitus type 2, admitted through the emergency room secondary to increasing shortness of breath fatigue, increasing abdominal distention and worsening leg edema. Patient is an colic, and drinks 6-9 shots of whiskey [place] yellow every day, shots, now comes in with abdominal symptoms, per son, patient lives with a live-in partner, on O2 2-2 L nasal cannula at home, walks with a walker, and is fallen down 5 weeks ago with subsequent fractured left rib. Per son, patient had always an elevated PSA, however no treatment was offered including TURP or radiation or chemotherapy He follows with Dr. Mcclure/Vasu. He now comes in with abdominal distention for which no previous paracentesis was performed, ultrasound of the abdomen shows moderate ascites, chest x-ray shows small pleural effusion, new compared to previous, no overt failure, no infiltrates, echocardiogram was performed borderline LVH with EF 55-60% right ventricular systolic pressure of 62, severe TR, severe pulmonary hypertension, moderate MR, moderate aortic stenosis. Right Ventricle severely enlarged, right atrium moderately enlarged, moderate AR. EKG shows normal sinus rhythm, with T- wave nonspecific abnormality, troponin less than 0.012, pro-calcitonin 0.77, albumin 2.5, sodium 127, creatinine 0.93, glucose 186, calcium 7.4, admission 1.1, total bili 2.8, ALT AST is normal, alkaline [place] elevated at 310 no lipase performed, hemoglobin 13.4, MCV 101 platelet count of 147 INF 1.2 Consults were made to cardiology, pulmonary Dr. Artinian, and gastroenterology secondary to ascites with anasarca, alcoholic liver cirrhosis with alcohol dependency, alcohol related illnesses. Patient on April 13. Please see nursing documentation for details. Discharge diagnoses: 1. Acute on chronic hypoxic respiratory failure secondary to COPD exacerbation, ascites, liver failure and multiorgan failure, present on admission. 2. Acute on chronic liver failure related to alcohol abuse 3. Anasarca with severe ascites, alcohol-related liver disease, severe protein calorie malnutrition 4. Liver cirrhosis secondary to alcohol abuse 5. Diabetes mellitus type 2 6. Alcohol dependency 7. Prostate cancer 8. COPD exacerbation 9. Severe protein calorie malnutrition 10. Sepsis, possible aspiration pneumonia 11. Recent rib fracture left side secondary to fall 5 weeks ago 12. Severe pulmonary hypertension 13. Moderate aortic stenosis 14. Small pulmonary effusion 15. Urinary retention 16. Active tobacco use and dependence 17. Chronic thrombocytopenia secondary to alcohol abuse Impression and plan of care have been directed as dictated by the signing physician. Trudy Marrero nurse practitioner acting as scribe for signing physician. Patient Condition at Discharge: Undetermined Plan - Discharge Summary Discharge Rx Participant: No New Discharge Prescriptions: No Action metFORMIN HCL [Glucophage] 500 mg PO BID Mometasone/Formoterol [Dulera 200 Mcg/5 Mcg Inhaler] 2 puff INHALATION RT-BID glipiZIDE [Glucotrol] 10 mg PO BID Aspirin EC [Ecotrin Low Dose] 81 mg PO DAILY Esomeprazole Magnesium [NexIUM] 40 mg PO QAM oxyCODONE-APAP 10-325MG [Percocet 10-325 mg] 1 tab PO TID Vit C/E/Zn/Coppr/Lutein/Zeaxan [Preservision Areds 2 Softgel] 1 cap PO DAILY Cholecalciferol [Vitamin D3 (25 Mcg = 1000 Iu)] 5,000 unit PO DAILY traZODone HCL 100 mg PO HS Tiotropium [place] [Spiriva Respimat] 1 spray INHALATION RT-DAILY@1800 predniSONE 10 mg PO DIRECTED Potassium Chloride ER [K-Dur 20] 20 meq PO DAILY Furosemide [Lasix] 40 mg PO DAILY Apalutamide [Erleada] 240 mg PO DAILY Albuterol Nebulized [Ventolin Nebulized] 2.5 mg INHALATION RT-QID PRN PRN Reason: Shortness Of Breath Calcium 1200mg + Vit D3 5000u 1 tab PO DAILY Discharge Medication List Aspirin EC [Ecotrin Low Dose] 81 mg PO DAILY 10/01/17 [History] Esomeprazole Magnesium [NexIUM] 40 mg PO QAM 10/01/17 [History] Mometasone/Formoterol [Dulera 200 Mcg/5 Mcg Inhaler] 2 puff INHALATION RT-BID 10/01/17 [History] glipiZIDE [Glucotrol] 10 mg PO BID 10/01/17 [History] metFORMIN HCL [Glucophage] 500 mg PO BID 10/01/17 [History] Vit C/E/Zn/Coppr/Lutein/Zeaxan [Preservision Areds 2 Softgel] 1 cap PO DAILY 04/18/19 [History] oxyCODONE-APAP 10-325MG [Percocet 10-325 mg] 1 tab PO TID 04/18/19 [History] Albuterol Nebulized [Ventolin Nebulized] 2.5 mg INHALATION RT-QID PRN 04/12/20 [History] Apalutamide [Erleada] 240 mg PO DAILY 04/12/20 [History] Calcium 1200mg + Vit D3 5000u 1 tab PO DAILY 04/12/20 [History] Cholecalciferol [Vitamin D3 (25 Mcg = 1000 Iu)] 5,000 unit PO DAILY 04/12/20 [History] Furosemide [Lasix] 40 mg PO DAILY 04/12/20 [History] Potassium Chloride ER [K-Dur 20] 20 meq PO DAILY 04/12/20 [History] Tiotropium [place] [Spiriva Respimat] 1 spray INHALATION RT-DAILY@1800 04/12/20 [History] predniSONE 10 mg PO DIRECTED 04/12/20 [History] traZODone HCL 100 mg PO HS 04/12/20 [History] Follow up Appointment(s)/Referral(s): Anselmo Tello DO [Primary Care Provider] - 1-2 days Discharge Disposition: - Preliminary Cause of Preliminary Cause of : Alcoholic liver disease
== END 2020-04-13 19:23 | disposition expired | DRG 432 ==
LOC: EC 15:45 → 3SCARD 18:05
PROVIDERS: ADMIT Family Medicine; ATTEND Family Medicine
DX: K70.31 Alcoholic cirrhosis of liver with ascites (principal); A41.9 Sepsis, unspecified organism; J69.0 Pneumonitis due to inhalation of food and vomit; J96.21 Acute and chronic respiratory failure with hypoxia; J15.6 Pneumonia due to other Gram-negative bacteria; E43 Unspecified severe protein-calorie malnutrition; R64 Cachexia; K76.6 Portal hypertension; J90 Pleural effusion, not elsewhere classified; I85.10 Secondary esophageal varices without bleeding; E87.1 Hypo-osmolality and hyponatremia; I27.20 Pulmonary hypertension, unspecified; E83.51 Hypocalcemia; K70.40 Alcoholic hepatic failure without coma; F10.20 Alcohol dependence, uncomplicated; J43.9 Emphysema, unspecified; E11.65 Type 2 diabetes mellitus with hyperglycemia; Z99.81 Dependence on supplemental oxygen; D69.59 Other secondary thrombocytopenia; Z66 Do not resuscitate; Z51.5 Encounter for palliative care; E83.42 Hypomagnesemia; Z68.20 Body mass index [BMI] 20.0-20.9, adult; G89.29 Other chronic pain; D50.9 Iron deficiency anemia, unspecified; M48.54XD Collapsed vertebra, not elsewhere classified, thoracic region, subsequent encounter for fracture with routine healing; T38.0X5A Adverse effect of glucocorticoids and synthetic analogues, initial encounter; K29.70 Gastritis, unspecified, without bleeding; K21.9 Gastro-esophageal reflux disease without esophagitis; I08.3 Combined rheumatic disorders of mitral, aortic and tricuspid valves; R33.9 Retention of urine, unspecified; M19.90 Unspecified osteoarthritis, unspecified site; G47.00 Insomnia, unspecified; R53.81 Other malaise; S22.32XD Fracture of one rib, left side, subsequent encounter for fracture with routine healing; F17.210 Nicotine dependence, cigarettes, uncomplicated; Z71.6 Tobacco abuse counseling; Z79.82 Long term (current) use of aspirin; Z79.84 Long term (current) use of oral hypoglycemic drugs; Z79.51 Long term (current) use of inhaled steroids; Z79.891 Long term (current) use of opiate analgesic; Z79.52 Long term (current) use of systemic steroids; Z79.899 Other long term (current) drug therapy; Z85.46 Personal history of malignant neoplasm of prostate; Z90.49 Acquired absence of other specified parts of digestive tract; Z87.19 Personal history of other diseases of the digestive system; Z98.890 Other specified postprocedural states; W19.XXXD Unspecified fall, subsequent encounter; Z88.0 Allergy status to penicillin
CPT/HCPCS: 36415; 71045; 76705; 80048; 80053; 81001; 82103; 82105; 83036; 83605; 83690; 83735; 83880; 84145; 84484; 85025; 85027; 85610; 85730; 86803; 87040; 87340; 93005; 93306; 94640; 96365; 96366; 96375; 99291